=== PATIENT | male | born 1955 | race Hispanic/Latino ===

== ENCOUNTER 2020-05-22 13:53 | Inpatient (IN) | payer OTHER, SELFPAY ==
[2020-05-22] MEDS ORDERED: Ondansetron PF 4 MG/2 ML Vial ONE (14:01)
[2020-05-22] MEDS ORDERED: Haloperidol Lactate 5 MG/ML VIAL ONE (14:23)
[2020-05-22] MEDS ORDERED: Lorazepam 2 MG/ML VIAL ONE (14:39)
[2020-05-22] MEDS ORDERED: Cefepime 2 GM VIAL ONE (15:13)
[2020-05-22 15:19] LABS: Bacteria/HPF None Seen HPF (None Seen); Bilirubin Negative (Negative); Blood, Urine Negative (Negative); Clarity Clear (Clear); Glucose, Urine (Dipstick) Normal (Negative); Ketone, Urine 10 mg/dL (Negative); Leukocyte Negative Leu/uL (Negative); Nitrite Negative (Negative); Protein, Urine (Dipstick) 50 mg/dL (Neg-Trace); RBC/HPF 0-3 HPF (0-3); Specific Gravity, Urine 1.015 (1.002-1.036); Squamous Epithelial 0-3 HPF (0-3); Urobilinogen Normal mg/dL (Less than 2)
[2020-05-22 15:20] LABS: Hemoglobin 14.8 g/dL (14.0-18.0); Mean Corpuscular HGB CONC 33.9 g/dL (32.0-36.0); Mean Corpuscular Hemoglobin 33.1 pg (27.0-31.0); Mean Corpuscular Volume 97.8 fL (78.0-98.0); Mean Platelet Volume 7.8 fL (7.4-10.4); Platelet Count 343 thou/uL (130-400); RBC Distribution Width 15.1 % (11.5-14.5); Red Blood Cell (RBC) Count 4.47 mill/uL (4.70-6.10); White Blood Cell (WBC) Count 22.1 thou/uL (4.8-10.8)
[2020-05-22 15:22] LABS: Sperm/HPF Rare HPF (None Seen)
[2020-05-22 15:28] LABS: Amphetamine Not Detected (NotDetected); Barbiturates Screen Not Detected (NotDetected); Benzodiazepine Screen Not Detected (NotDetected); Cocaine Metabolite Screen Not Detected (NotDetected); Medtox Reader # READER 4; Methadone Not Detected (NotDetected); Methamphetamine Not Detected (NotDetected); Opiate Screen Not Detected (NotDetected); Oxycodone Screen Not Detected (NotDetected); Phencyclidine (PCP) Not Detected (NotDetected); THC/Cannabinoid Screen Detected (NotDetected); Tricyclic Screen Not Detected (NotDetected)
[2020-05-22 15:29] LABS: Acetaminophen Less than 6.0 mcg/mL (10.0-30.0); Alcohol Less than 10 mg/dL (Less than 10); CK (CPK) 205 U/L (30-200); Medtox Control Line Valid? VALID (VALID); Salicylate Less than 8.0 mg/dL (15.0-30.0)
[2020-05-22 15:37] LABS: ALT (SGPT) 13 U/L (8-55); AST (SGOT) 19 U/L (5-34); Albumin 4.5 g/dL (3.4-4.8); Alkaline Phosphatase 113 U/L (40-110); Anion Gap 23 mmol/L (10-20); BUN (Urea Nitrogen) 10 mg/dL (8.4-25.7); Bilirubin, Total 0.2 mg/dL (0.2-1.2); Calc. Creatinine Clearance 0 mL/min (70-130); Calcium 9.2 mg/dL (7.8-10.44); Carbon Dioxide 16 mmol/L (23-31); Chloride 107 mmol/L (98-107); Estimated GFR-MDRD Greater than 90; Globulin 3.4 g/dL (2.4-3.5); Glucose 121 mg/dL (80-115); Potassium 3.8 mmol/L (3.5-5.1); Protein, Total 7.9 g/dL (5.8-8.1); Sodium 142 mmol/L (136-145)
[2020-05-22 15:40] LABS: Anisocytosis SLIGHT = 6-15 cells (100X) (0-5/hpf); Band 35 % (5-11); Lymphocytes 3 % (21-51); MDiff Complete? YES; Monocytes 5 % (0-10); Neutrophil 56 % (42-75); Platelet Morphology Comment Appears Adequate; Polychromasia SLIGHT = 2-3 cells (100X) (0-2/hpf); Reactive Lymphocytes 1 % (0-10); Target Cells SLIGHT = 2-5 cells (100X) (0-1/hpf); Tear Drops SLIGHT = 2-5 cells (100X) (0-1/hpf)
[2020-05-22] MEDS ORDERED: Iopamidol-370 76% 500 ML 1 ML ONE (15:51)
[2020-05-22] MEDS ORDERED: Succinylcholine Chloride 20 MG/ML 10 ml SYRINGE FS ONE (15:56)
[2020-05-22] MEDS ORDERED: Ketamine 50 MG/ML (10ML VIAL) ONE (15:56)
--- NOTE | 2020-05-22 16:12 | RAD ---
PORTABLE CHEST: 05/22/20 HISTORY: Syncope. Altered mental status. COMPARISON: 11/25/19 exam. Heart size within normal limits. The aorta is mildly tortuous. Some minimal interstitial changes in t he bases could represent atelectasis. No confluent infiltrate. IMPRESSION: Minimally increased interstitial changes in the bases suggesting some subsegmental atelectasis. POS: OFF
[2020-05-22] MEDS ORDERED: Fentanyl 100 MCG/2 ML VIAL ONE (16:29)
[2020-05-22] MEDS ORDERED: Vancomycin HCl 1.25 GM in Sodium Chloride 0.9% 250 ML 250 ML IVPB SCH (16:30)
[2020-05-22] MEDS ORDERED: fentaNYL Citrate/PF 2,000 MCG in Sodium Chloride 0.9% 60 ML IV SCH ×2 (16:30→21:00)
[2020-05-22] MEDS ORDERED: Propofol 1,000 MG/100 ML VIAL IV ONE (16:31)
[2020-05-22 16:32] LABS: Actual Bicarbonate (HCO3a) 17.3 mEq/L (22-28); Analyzer IN Cardio ER; Base Excess (BEa) -7.6 mEq/L (-2.0 to +3.0); CO2 Tension 33.8 mmHg (35.0-45.0); Calcium, Ionized (arterial) 1.16 mmol/L (1.12-1.30); Carboxyhemoglobin (COHb) 0.3 gm% (0.0-3.0); Hemoglobin (Hb) 14.1 g/dL (14.0-18.0); O2 Tension (PaO2), arterial 132.7 mmHg (> 80.0); pH, Arterial 7.33 (7.35-7.45)
[2020-05-22 16:33] LABS: Puncture Site LR
--- NOTE | 2020-05-22 18:13 | CT ---
CT OF FACIAL BONES PERFORMED WITHOUT CONTRAST ENHANCEMENT: 05/22/20 HISTORY: Facial trauma. Patient was found on ground. The zygomatic arches are intact. Some deformity to the nasal bone but this is of fairly similar appea ginny as seen on the previous examination. Zygomatic arches are intact. Pterygoid processes are intac t. No air fluid levels. No orbital or maxillary fractures seen. Ethmoid air cell mucosal change is noted . Endotracheal and NG tubes are present. No mandibular fracture. IMPRESSION: No CT evidence of fracture of the facial bones. POS: OFF
--- NOTE | 2020-05-22 18:16 | CT ---
CT OF CERVICAL SPINE PERFORMED WITHOUT CONTRAST ENHANCEMENT: 05/22/20 HISTORY: Fall with neck pain. Vertebral bodies are normal in height. There is a minimal anterolisthesis of C4 on C5. Marked disc na rrowing at C5-6 and C6-7. Facets show degenerative changes but are in normal alignment. There is mild right sided foraminal narrowing at the C5-6 level and left sided foraminal narrowing at C6-7. Eviden ce of what appears to be some vacuum disc material seen at the level of the left vertebral foramen at C5. This is seen on the previous CT examination. Lung apices appear clear. IMPRESSION: No CT evidence of fracture of the cervical spine. POS: OFF
[2020-05-22] MEDS ORDERED: Ondansetron HCl/PF 8 MG in Sodium Chloride 0.9% 50 ML IVPB SCH (18:30)
[2020-05-22 18:32] LABS: Lactic Acid 1.6 mmol/L (0.5-2.2)
--- NOTE | 2020-05-22 18:40 | CT ---
CT OF BRAIN PERFORMED WITHOUT CONTRAST ENHANCEMENT: 05/22/20 HISTORY: Altered mental status. Patient found on the ground, responsive to verbal stimuli but will not talk. COMPARISON: An MRI study and CT examinations of 11/25/19 and 11/27/19 respectively. The ventricular and cisternal system is within normal limits. There is area of decreased attenuation over the left frontal lobe adjacent to the left frontal horn. This area was present on the prior exam ination. Slightly more prominent but still most likely felt to represent some encephalomalacia change . There is considerable white matter changes involving the right temporal and occipital lobes extendi ng minimally into the parietal region. This is an area where the patient had a previous abscess drain ed. A large portion of this is probably just related to encephalomalacia change. I do not appreciate any definite signs to suggest a recurrent abscess on this examination. There is a definite decrease in the shift of midline structures to the left with only approximately 5 mm shift seen on this exam. No hemorrhage noted. Postop craniotomy changes in the right parieto-occipital regions are noted. The right temporal horn is more dilated than on the prior examination probably as the result of the d ecreasing edema. IMPRESSION: 1. Prominent decreased attenuation within the white matter of the right temporal and parieto-occ ipital regions. This is in an area of a previous abscess. I would suspect that the majority of this r epresents encephalomalacia change at this time but some of this could still represent some vasogenic edema given that there is still a slight shift of midline structures to the left. I do not appreciat e any definite abscess. An MRI examination would be helpful in evaluating the vasogenic edema and any small new abscess collection. Alternatively, contrast CT of the brain may help in excluding the poss ibility of an abscess. 2. The area of decreased attenuation in the left frontal lobe adjacent to the left frontal horn is slightly more prominent than the prior exam but still felt most likely to be on the basis of encep halomalacia change. POS: OFF
--- NOTE | 2020-05-22 18:46 | CT ---
CT CHEST, ABDOMEN AND PELVIS PERFORMED WITH INTRAVENOUS CONTRAST ENHANCEMENT: 05/22/20 HISTORY: Patient found down on ground. Responsive only to verbal stimuli and will not talk. The lungs show some bibasilar changes which are slightly more confluent and more suggestive of some d eveloping bibasilar infiltrates. There is no pneumothorax. No pleural effusions. No rib fractures identified. Thoracic aorta is normal in caliber. NG tube is seen within the stomach. Endotracheal tube is just a burke the level of the herb. CT OF ABDOMEN PERFORMED WITH CONTRAST ENHANCEMENT: Visualized liver parenchyma shows some fatty change. Spleen and pancreas regions appear unremarkable. Gallstones are present. Right and left adrenal glands and right and left kidneys are normal. No free fluid in the abdomen. No signs for bowel wall injury. CT OF PELVIS PERFORMED WITH CONTRAST ENHANCEMENT: Gtz catheter is in place. No adenopathy, mass or free fluid. No evidence of fracture of the bony pe lvic ring. No hip fracture identified. CT OF THORACIC SPINE: Unremarkable other than arthritic change. CT OF LUMBAR SPINE: No acute changes. IMPRESSION: 1. Bibasilar lung changes more suggestive of an infiltrate than atelectasis. 2. Mild fatty change to the liver. 3. Gallstones. POS: OFF
--- NOTE | 2020-05-22 19:01 | PDOC.HHP ---
Hospitalist HPI - History of Present Illness Altered mental status History of Present Illness: This is a 65-year-old male patient with a history of brain abscess status post evacuation, who was brought in today by EMS on account of altered mental status. Eventually required endotracheal intubation on arrival of the ED. Patient was altered at the time of presentation thought history limited. Was taken from charts and physician signed off. Of note, he was found on the ground conscious and breathing by his friend at his friend's house. It is unclear whether he is homeless or not. At initial evaluation his pulses were between 70 and 80s, did drop to the 50s requiring atropine. Mentation was altered with GCS reducing to about 11. Blood pressure was systolic 174/102, temperature 94.8, saturation 95% on room air. Initial labs showed lactic acid of 9.2, WBC 22.1, bands 35, anion gap 23 bicarb 16, ABG showed pH 7.33, PCO2 33.8, oxygen saturation 132, alkaline phosphatase elevated at 113,. Drug screen was notable for THC, acetaminophen level is less than 6.0, salicylate less than 8, CPK 205. Urinalysis showed no indication of urinary tract infection. Chest x-ray was done which showed minimally increased interstitial changes in the base suggesting of some subsegmental atelectasis, CT brain showed prominent decreased attenuation with white matter of the right temporal and. To the occipital regions in an area of previous abscess. There was vasogenic edema but not clear indication of abscess. MRI follow-up was recommended. Due to concerns of severe sepsis he was started on IV fluids2 L, received 2 g cefepime and vancomycin. He also received levetiracetam and fentanyl lorazepam and Haldol. Neurosurgery was consulted on account of intracranial lesion. Hospitalist team was consulted for admission. Hospitalist ROS - Review of Systems ROS unobtainable: due to mental status - Medication Medications: No information available Hospitalist History - Past Medical History Other Medical History: Unable to assess. - Past Surgical History Other Surgical History: Craniotomy, brain abscess - Family History Other Family History: Unable to assess - Social History Other Social History: Unable to assess - Exam General Appearance: ill appearing General - other findings: Intubated. Heart: RRR, no murmur, no gallops Respiratory: no wheezes, no rales, no ronchi Extremities: no cyanosis, no clubbing, no edema Psychiatric - other findings: Unable to assess Hospitalist Results - Labs Result Diagrams: 05/22/20 14:50 05/22/20 14:50 Lab results: WBC 22.1 thou/uL (4.8-10.8) H 05/22/20 14:50 Hgb 14.8 g/dL (14.0-18.0) 05/22/20 14:50 Hct 43.7 % (42.0-52.0) 05/22/20 14:50 MCV 97.8 fL (78.0-98.0) 05/22/20 14:50 Plt Count 343 thou/uL (130-400) 05/22/20 14:50 Band Neuts % (Manual) 35 % (5-11) H 05/22/20 14:50 ABG pH 7.33 (7.35-7.45) L 05/22/20 16:27 ABG pCO2 33.8 mmHg (35.0-45.0) L 05/22/20 16:27 ABG pO2 132.7 mmHg (> 80.0) H 05/22/20 16:27 Sodium 142 mmol/L (136-145) 05/22/20 14:50 Potassium 3.8 mmol/L (3.5-5.1) 05/22/20 14:50 Chloride 107 mmol/L (98-107) 05/22/20 14:50 Carbon Dioxide 16 mmol/L (23-31) L 05/22/20 14:50 BUN 10 mg/dL (8.4-25.7) 05/22/20 14:50 Creatinine 0.77 mg/dL (0.7-1.3) 05/22/20 14:50 Glucose 121 mg/dL (80-115) H 05/22/20 14:50 Lactic Acid 1.6 mmol/L (0.5-2.2) 05/22/20 18:03 Calcium 9.2 mg/dL (7.8-10.44) 05/22/20 14:50 Total Bilirubin 0.2 mg/dL (0.2-1.2) 05/22/20 14:50 AST 19 U/L (5-34) 05/22/20 14:50 ALT 13 U/L (8-55) 05/22/20 14:50 Alkaline Phosphatase 113 U/L (40-110) H 05/22/20 14:50 Ammonia 35 umol/L (18-72) 05/22/20 16:04 Creatine Kinase 205 U/L (30-200) H 05/22/20 14:50 Troponin I 0.010 ng/mL (< 0.028) 05/22/20 14:50 Serum Total Protein 7.9 g/dL (5.8-8.1) 05/22/20 14:50 Albumin 4.5 g/dL (3.4-4.8) 05/22/20 14:50 Urine Ketones 10 mg/dL (Negative) A 05/22/20 14:50 Urine Blood Negative (Negative) 05/22/20 14:50 Urine Nitrite Negative (Negative) 05/22/20 14:50 Ur Leukocyte Esterase Negative Noel/uL (Negative) 05/22/20 14:50 Urine RBC 0-3 HPF (0-3) 05/22/20 14:50 Urine WBC 4-6 HPF (0-3) A 05/22/20 14:50 Ur Squamous Epith Cells 0-3 HPF (0-3) 05/22/20 14:50 Urine Bacteria None Seen HPF (None Seen) 05/22/20 14:50 Hospitalist H&P A/P - Plan Plan: This is a 65-year-old male patient who was brought in with altered mental status of unclear etiology with poor ability to get his history. Concerns for intracranial process. He will be admitted for severe sepsis and neurosurgery/neurology evaluation. He will be admitted to CCU Severe sepsis Presents with altered mental status with lactate at 9.2, WBC 22.1 and hypothermia. Unclear etiology possibly intracerebral sourcepossible abscess recurrence Chest x-ray, urinalysis all negative for source of infection. Received 30 mils per KG IV fluids in ED. Started on vancomycin, cefepimewe will continue vancomycin, ceftriaxone and metronidazole for now Blood culture pending Trend lactate Intracerebral infection Possibly abscess Neurosurgery consultedappreciate input. Acute encephalopathy Likely due to sepsis and intracerebral lesion Cannot rule out seizures from intracerebral mass Continue seizure management Prophylactic Keppra Neurology consultedEEG in a.m. Acute respiratory failure Altered mental statusintubated for airway protection Continue monitoring ICU Consult pulmonology. CODE STATUSfull code VT prophylaxisregular
[2020-05-22 19:35] LABS: INR-International Normal Ratio 1.1; PTT 32.5 sec (22.9-36.1); Prothrombin Time 14.9 sec (12.0-14.7)
[2020-05-22] MEDS: cefTRIAXone\\ROCEPHIN 2 GM in Sodium Chloride 0.9% 100 ML IVPB SCH (20:39)
[2020-05-22] MEDS: Enoxaparin Sodium 40 MG/0.4 ML SYRINGE SC SCH (20:39)
[2020-05-22] MEDS: metroNIDAZOLE 500 MG in Premix Bag 1 BAG IVPB SCH (20:39)
[2020-05-22] MEDS: Sodium Chloride 0.9% 1,000 ML IV SCH (20:39)
[2020-05-22] MEDS ORDERED: Electrolyte Replacement Protoc 1 EACH EACH FS PRN (20:41)
[2020-05-22] MEDS ORDERED: Ventilator Sedation Protocol 1 EACH FS SCH (20:45)
[2020-05-22 20:52] VITALS: BMI 20.7
[2020-05-22] MEDS ORDERED: Lorazepam 2 MG/ML VIAL SLOW IVP PRN (21:00)
[2020-05-22] MEDS ORDERED: Propofol BOLUS 1,000 MG/100 ML VIAL IV PRN (21:00)
[2020-05-22] MEDS ORDERED: Fentanyl BOLUS 250 ML IVPB PRN (21:00)
[2020-05-22] MEDS ORDERED: Morphine 2 MG/ML VIAL SLOW IVP PRN (21:00)
[2020-05-22] MEDS: Famotidine/PF 20 mg/2ml Vial SLOW IVP SCH (21:35)
[2020-05-22] MEDS: Propofol 1,000 MG/100 ML VIAL IV PRN (21:40)
--- NOTE | 2020-05-22 22:29 | CON ---
DATE OF CONSULTATION: 05/22/2020 HISTORY OF PRESENT ILLNESS: Mr. Saldana is a 65-year-old gentleman with a prior history of a right occipital abscess resection on 11/26/[address] Velasquez. It was reported to EMS that the patient was found at a stranger or possibly a friend's house and fell out of bed. EMS was called due to altered mental status and the patient was unable to respond to commands. In the Emergency Department, the GCS was 11 and his pulse dropped in the 50s requiring atropine. Blood pressures was 180/100 with a temperature of 94.8. The patient was intubated due to agitation. He received Keppra, fentanyl, and lorazepam as well as Haldol in the emergency room. Due to concerns of sepsis, the patient received cefepime and vancomycin. Neurosurgery was consulted due to question of returning abscess. Head CT was obtained indicating a decreased white matter of the right temporal lobe, vasogenic edema with a slight midline shift. It was reported the patient was moving all extremities prior to intubation. Unable to get a thorough neural examination due to the sedation. REVIEW OF SYSTEMS: Unable to obtain ROS, the patient is intubated. MEDICAL HISTORY: Unobtainable. SOCIAL HISTORY: Unobtainable. ALLERGIES: NO KNOWN DRUG ALLERGIES, UNCONFIRMED. CURRENT MEDICATIONS: Unknown. SOCIAL HISTORY: Unable to obtain. HISTORY OF PRESENT ILLNESS: VITAL SIGNS: BP 180/100, pulse 85, respirations 18, temperature 94.8, and O2 saturation 100%. CONSTITUTION: Ill-appearing. HEENT: Atraumatic and normocephalic. Pupils are equal. NECK: Soft and supple. No masses are noted. Range of motion is intact. NEUROLOGIC: Unable to assess. The patient is intubated and highly sedated. LABORATORY DATA: WBC 22 and platelets 343. Sodium 142. PT 14.9, INR 1.1, and PTT 32.5. IMAGING: Cervical spine CT, no evidence of cervical spine fractures. Head CT, postop craniotomy changes in the right parietal occipital region. Vasogenic edema with a 5 mm midline shift. ASSESSMENT: 1. Altered mental status. 2. Sepsis. 3. Seizure. 4. Brain Abscess PLAN: Prophylactic Keppra for seizures. Continue current antibiotics. Blood cultures are pending. Supportive care. We will get a MRI of the brain to determine if intracranial surgery would help his neurological outcome. Job ID: [id number] [email or web address]
[2020-05-22 22:58] LABS: Actual Bicarbonate (HCO3a) 19.5 mEq/L (22-28); Base Excess (BEa) -2.6 mEq/L (-2.0 to +3.0); CO2 Tension 26.4 mmHg (35.0-45.0); Calcium, Ionized (arterial) 1.16 mmol/L (1.12-1.30); Carboxyhemoglobin (COHb) 0.3 gm% (0.0-3.0); Hemoglobin (Hb) 12.4 g/dL (14.0-18.0); O2 Tension (PaO2), arterial 147.3 mmHg (> 80.0); Potassium - ABG Lab 3.26 mmol/L (3.70-5.30); pH, Arterial 7.49 (7.35-7.45)
[2020-05-22 22:59] LABS: Puncture Site RRA
[2020-05-23 03:39] LABS: Anion Gap 10 mmol/L (10-20); BUN (Urea Nitrogen) 10 mg/dL (8.4-25.7); Calc. Creatinine Clearance 87 mL/min (70-130); Calcium 8.6 mg/dL (7.8-10.44); Carbon Dioxide 20 mmol/L (23-31); Chloride 112 mmol/L (98-107); Estimated GFR-MDRD Greater than 90; Glucose 90 mg/dL (80-115); Potassium 3.2 mmol/L (3.5-5.1); Sodium 139 mmol/L (136-145)
[2020-05-23] MEDS: metroNIDAZOLE 500 MG in Premix Bag 1 BAG IVPB SCH ×3 (03:43→20:10)
[2020-05-23 03:49] LABS: #Basophils 0.1 thou/uL (0.0-0.2); #Eosinphils 0.1 thou/uL (0.0-0.7); #Lymphocytes 1.7 thou/uL (1.20-3.40); #Monocytes 0.9 thou/uL (0.11-0.59); #Neutrophils 9.1 thou/uL (1.40-6.50); %Basophils 0.6 % (0.0-1.0); %Eosinophils 0.5 % (0.0-10.0); %Lymphocytes 14.2 % (21.0-51.0); %Monocytes 7.9 % (0.0-10.0); %Neutrophils 76.9 % (42.0-75.0); Mean Corpuscular HGB CONC 33.3 g/dL (32.0-36.0); Mean Corpuscular Hemoglobin 32.1 pg (27.0-31.0); Mean Corpuscular Volume 96.3 fL (78.0-98.0); Mean Platelet Volume 8.4 fL (7.4-10.4); Platelet Count 264 thou/uL (130-400); Red Blood Cell (RBC) Count 3.73 mill/uL (4.70-6.10); White Blood Cell (WBC) Count 11.8 thou/uL (4.8-10.8)
[2020-05-23] MEDS ORDERED: Potassium Chloride 40 MEQ in Sodium Chloride 0.9% 250 ML 250 ML IVPB SCH (05:00)
[2020-05-23] MEDS: Vancomycin 1 GM in Premix Bag 1 BAG IVPB SCH ×2 (05:52→17:36)
[2020-05-23 07:26] LABS: Base Excess (BEa) -3.9 mEq/L (-2.0 to +3.0); CO2 Tension 32.5 mmHg (35.0-45.0); Carboxyhemoglobin (COHb) 0.3 gm% (0.0-3.0); Hemoglobin (Hb) 11.9 g/dL (14.0-18.0); O2 Tension (PaO2), arterial 119.4 mmHg (> 80.0); Potassium - ABG Lab 3.85 mmol/L (3.70-5.30); pH, Arterial 7.41 (7.35-7.45)
[2020-05-23 07:27] LABS: Puncture Site RR
[2020-05-23 07:28] LABS: ALV-art Gradient 125.175 mmHg (0-20)
--- NOTE | 2020-05-23 08:21 | CON ---
DATE OF CONSULTATION: 05/23/2020 TIME SPENT: 35 minutes of critical time. CONSULTING PHYSICIAN: Hospitalist Group. REASON FOR CONSULTATION: Acute respiratory failure. HISTORY OF PRESENT ILLNESS: The patient is a 65-year-old male, who was brought to the ER yesterday after being found unconscious at home. He was not arousable in the ER, and had bradycardia and hypothermia. He was subsequently intubated. He received Keppra, fentanyl, and lorazepam. There were some concern for sepsis, and he was started on broad-spectrum IV antibiotics. A CT of the head was performed, which showed a large resected abscess area on the right side of the brain. He was intubated for airway protection. He is currently sedated. PAST MEDICAL HISTORY: He has had some type of brain abscess in the past. PAST SURGICAL HISTORY: Craniotomy. FAMILY MEDICAL HISTORY: Unknown. SOCIAL HISTORY: Unknown. MEDICATIONS: Prior to admission, not known. ALLERGIES: NONE. REVIEW OF SYSTEMS: Cannot be obtained as he is on mechanical ventilation. PHYSICAL EXAMINATION: VITAL SIGNS: Heart rate 52, blood pressure 100/63, O2 sat 100%, respiratory rate 16, and temperature 97.9. He just had his sedation turned off. NEUROLOGIC: He will move his arms and legs spontaneously, but does not withdrawal vigorously to pain. HEENT: Pupils 2 mm, reactive. Oropharynx is intubated. NECK: No JVD. LUNGS: Clear. CARDIOVASCULAR: S1 and S2. Slightly bradycardic. ABDOMEN: Soft and nontender to palpation. EXTREMITIES: No clubbing, cyanosis, or edema. LABORATORY DATA: White blood cell count 11.8 after presenting with white blood cell count 23.1, hematocrit 35.9, and platelet count 264, initially had 35 bands, but bands were not reported on today's CBC. INR is 1.1, PTT 32.5. PH of 7.49, pCO2 of 26, pO2 of 147, SIMV rate 16, tidal volume 525, pressure of 10, FiO2 of 40%. Sodium 139, potassium 3.2, chloride 112, CO2 of 20, BUN 10, creatinine 0.6, glucose 90. Lactate now 1.6. Procalcitonin 0.02. Prolactin level 62. IMAGING DATA: Chest x-ray demonstrates fairly clear lung saunders bilaterally. ASSESSMENT: 1. Constellation of symptoms in his presentation along with elevated prolactin suggest that the patient probably had a seizure. His lactic acidosis corrected far too quickly for this to be sepsis. 2. Acute respiratory failure requiring mechanical ventilation. 3. Previous brain abscess. Recommendation anticonvulsants. 4. Neurology consultation. 5. Would consolidate and even discontinue most of the antibiotics, if Neurology and Internal Medicine are in agreement. 6. Hold sedation and extubate if he wakes up. Job ID: [id number]
[2020-05-23] MEDS: Sodium Chloride 0.9% 1,000 ML IV SCH ×2 (08:49→17:37)
[2020-05-23] MEDS: Famotidine/PF 20 mg/2ml Vial SLOW IVP SCH ×2 (08:49→20:13)
[2020-05-23] MEDS: cefTRIAXone\\ROCEPHIN 2 GM in Sodium Chloride 0.9% 100 ML IVPB SCH ×2 (08:49→20:14)
--- NOTE | 2020-05-23 08:57 | PDOC.HOSPP ---
- Subjective Encounter Date: 05/23/20 Encounter Time: 08:55 Subjective: Mr. Saldana was seen today in follow-up of metabolic encephalopathy. He is intubated to protect his airway. He will respond. - Objective Vital Signs & Weight: Vital Signs (12 hours) Temp Pulse Resp BP 05/23/20 08:00 98.2 F 05/23/20 07:17 54 L 100/63 05/23/20 06:00 12 05/23/20 04:00 12 05/23/20 02:02 51 L 120/72 05/23/20 02:00 12 05/23/20 00:00 12 05/22/20 22:34 55 L 140/85 05/22/20 22:00 16 Weight Weight 120 lb 13.013 oz Most Recent Monitor Data Heart Rate from ECG 54 NIBP 137/72 NIBP BP-Mean 93 Respiration from ECG 16 SpO2 100 I&O: 05/22/20 05/23/20 05/24/20 06:59 06:59 06:59 Intake Total 1250 Output Total 1795 80 Balance -545 -80 Result Diagrams: 05/23/20 03:02 05/23/20 03:02 Additional Labs: Accuchecks 05/22/20 14:15 POC Glucose 143 H Hospitalist ROS - Medication Medications: Active Medications Generic Name Dose Route Start Last Admin Trade Name Freq PRN Reason Stop Dose Admin Enoxaparin Sodium 40 mg 05/22/20 21:00 05/22/20 20:39 Enoxaparin Sodium 40 Mg/0.4 Ml Syringe SC 40 mg 2100 ACE Administration Famotidine 20 mg 05/22/20 21:00 05/23/20 08:49 Famotidine/Pf 20 Mg/2ml Vial SLOW IVP 20 mg BID ACE Administration Vancomycin HCl 1 gm/ Device 200 mls @ 200 mls/hr 05/23/20 06:00 05/23/20 05:52 IVPB 200 mls 0600,1800 ACE Administration Metronidazole 500 mg/ Device 100 mls @ 200 mls/hr 05/22/20 20:00 05/23/20 03:43 IVPB 100 mls 0400,1200,2000 ACE Administration Ceftriaxone Sodium 2 gm/ 100 mls @ 200 mls/hr 05/22/20 21:00 05/23/20 08:49 Sodium Chloride IVPB 100 mls Q12HR ACE Administration Sodium Chloride 1,000 mls @ 100 mls/hr 05/22/20 19:45 05/23/20 08:49 Normal Saline 0.9% IV 1,000 mls .Q10H ACE Administration Propofol 1,000 mg 05/22/20 21:00 05/22/20 21:40 Propofol 1,000 Mg/100 Ml Vial IV 06/21/20 21:00 1,000 mg INF PRN Administration TO ACHIEVE GOAL RASS Protocol - Exam Eye: PERRL, anicteric sclera Heart: RRR, no murmur, no gallops, no rubs, normal peripheral pulses Respiratory: CTAB (+ coarse breath sounds), no rales, no ronchi Gastrointestinal: soft, non-tender, non-distended, normal bowel sounds, no palpable masses, no hepatomegaly Extremities: no cyanosis, no edema Hosp A/P (1) Metabolic encephalopathy Code(s): G93.41 - METABOLIC ENCEPHALOPATHY Status: Acute (2) Brain abscess Code(s): G06.0 - INTRACRANIAL ABSCESS AND GRANULOMA Status: Acute (3) Hypertension Code(s): I10 - ESSENTIAL (PRIMARY) HYPERTENSION Status: Chronic - Plan * Metabolic encephalopathy- ? etiology-unclear if this represents sepsis, seizure activity ect. However a seizure is the most likely explanation and working diagnosis * Will check a procalcitonin, and consider de-escalting or discontinuing antibiotics * Will continue to monitor cultures * EEG is pending as well as MRI * He has been placed on Keppra and seizure precautions * Agree with Neurology consult * CT chest noted- changes are suspicious for bi-basilar pneumonia * HTN- blood pressure is elevated- will add Hydralazine as needed
[2020-05-23] MEDS ORDERED: hydrALAZINE 20 MG/ML VIAL SLOW IVP PRN (08:59)
[2020-05-23] MEDS ORDERED: FLU VACC QS2020-21(6MOS UP)/PF 60 MCG/0.5 ML SYRINGE IM ONE (09:00)
[2020-05-23] MEDS ORDERED: levETIRAcetam In NaCl (Iso-Os) 1,000 MG in Premix Bag 1 BAG IVPB SCH (09:00)
--- NOTE | 2020-05-23 09:46 | PRG ---
DATE OF SERVICE: 05/23/2020 I personally interviewed and examined the patient, agreed with documentation of Valente Avila PA-C dated 05/22/2020. Briefly, Ra Saldana is a 65-year-old gentleman, previously treated at our hospital in October and November of this year. He has another different medical record number for that admission, it is quite beneficial to combine those medical record numbers, so that we can look back at previous treatments and plans. This is true on the imaging counter server as well as on the [employer] counter server. Ra Saldana is a 65-year-old gentleman who has been reportedly homeless in the past, who was treated for a dental abscess and subsequent brain abscess that was polymicrobial in nature. He was treated with the Rocephin and Flagyl last time and IV antibiotic therapy as an outpatient was recommended and arranged. It is unclear whether he finished his therapy. He was readmitted to the hospital with altered mental status. It is most likely postictal at the time. He was intubated because of his decreased mental status and admitted to the ICU. CT examination of brain on admission showed evidence of prior surgery and some enlargement of the temporal horn of the lateral ventricle on the right side with and without recurrent abscess. Overnight, Mr. Saldana has made some slow recovery and is responding and becoming more and more purposeful. No fevers have been recorded. Blood pressures have been in the 120s to 150s. On examination, he remains intubated, and there is some sedation running. In spite of that, he begins to make some motion to withdraw and perhaps even localize. I reviewed CT examination of brain and compared to CT examination prior to his craniotomy. There is marked improvement between the 2 scans. The mass effect in the posterior inferior temporal lobe and posterior parietal lobe on the right side was markedly reduced. The posterior horn of the lateral ventricle on the right is now visible, whereas it was not before. Midline shift was decreased from 14 mm to 4 mm. The temporal horn of the lateral ventricle may be enlarged now compared to then, but there is no extra movement of the medial portion of the temporal lobes as compared to when he had previously. I recommended for Mr. Saldana to have an MRI scan. I would be beneficial to see how much fluid is possibly recurrent abscess. It may be there is some loculation of the lateral ventricle that has trapped it. If he returns normal neurological function in spite of the scan, I would treat him quite conservatively. He will need antiepileptic medication going forward, however. Job ID: [id number] [email or web address]
[2020-05-23] MEDS ORDERED: Magnevist 469MG/ML 20 ML VIAL ONE (10:19)
[2020-05-23 11:41] LABS: SARS-CoV-2 MS2 Positive; SARS-CoV-2 N Gene Negative; SARS-CoV-2 S Gene Negative; SARS-CoV-2 by NAA Not Detected (NotDetected); SARS-CoV-2 orf1ab Negative
--- NOTE | 2020-05-23 12:26 | MRI ---
MRI Brain W WO Con History: Abscess Comparison: Multiple prior CT and MRI examinations, most recent CT examination May 22, 2020 Findings: Left inferior frontal encephalomalacia is similar. Right temporoparietal resection cavity f rom prior intraparenchymal abscess is collapsed with cystic enlargement of the right temporal horn. Mild edema edema along the resection cavity. No abnormal enhancing intraparenchymal mass. The right t o left midline shift of approximately 4-5 mm may be on the basis of cystic enlargement of the right temporal or combined with vasogenic edema/transependymal fluid. Overall the edema pattern is similar to the comparison exam. Small focus of susceptibility along the intraparenchymal incision site. No definite communication of the right temporal horn with the atria which may be sequela of scar. Dural venous sinuses are patent. [place] is patent. Impression: 1. Cystic dilatation right temporal horn which may have lost its normal communication with the right lateral ventricular atria from scar, trapped temporal horn. The right temporal parietal edema may reflect continued vasogenic edema versus transependymal flow due to obstruction of the temporal horn communication. Right-left midline shift has not improved nor worsened. 2. No acute hemorrhage. 3. No acute infarction. 4. Mild effacement right quadrilateral plate with high risk for early uncal herniation. 5. No new focal intraparenchymal abscess.
--- NOTE | 2020-05-23 12:46 | PDOC.EEG ---
Neurology EEG Report - Report Report: This EEG was performed using 24 channel [employer] video digital EEG machine with 24 disc electrodes. This was an extended 2 hours 4 minutes of EEG recording. Digital analysis of the EEG was done for Tyrese and seizure detection which revealed no abnormalities. Background: The posterior background rhythm was not observed. Photic stimulation: No response seen with photic stimulation. Hyperventilation: Not performed. Sleep: No stage change was observed. EEG diagnosis: Generalized irregular theta activity seen throughout the recording. Absence of posterior background rhythm. Clinical interpretation: This EEG is consistent with moderate generalized nonspecific cerebral dysf unction.
[2020-05-23] MEDS: Propofol 1,000 MG/100 ML VIAL IV PRN (17:36)
--- NOTE | 2020-05-23 19:50 | CON ---
NEUROLOGY CONSULTATION DATE OF CONSULTATION: REASON FOR CONSULTATION: Altered mental status. HISTORY OF PRESENT ILLNESS: Mr. Saldana is a 65-year-old male with medical history significant for brain abscess status post evacuation, brought by the EMS because of altered mental status. The patient was extremely altered at the time of presentation and no family member was available to provide the history. His blood pressure was 174/102 and he was unable to protect his airway, so he was intubated and sedated. CT scan of the brain was done, which showed discrete attenuation and white matter in the right temporal region and occipital region in the area of previous abscess with vasogenic edema. Due to concern of severe sepsis, he was started on intravenous fluids and was given 2 g of cefepime and vancomycin. There was also a concern about seizures, so he was loaded with 2 g of Keppra and admitted for further evaluation. REVIEW OF SYSTEMS: Unobtainable due to the patient's mental status. MEDICATIONS: Unavailable. PAST MEDICAL HISTORY: Not able to assess. PAST SURGICAL HISTORY: Brain abscess. FAMILY HISTORY: Not able to assess. SOCIAL HISTORY: Not able to assess. PHYSICAL EXAMINATION: General Appearance: ill appearing General - other findings: Intubated. Heart: RRR, no murmur, no gallops Respiratory: no wheezes, no rales, no ronchi Extremities: no cyanosis, no clubbing, no edema Neurological: Mental status: The patient is intubated and sedated. Does not follow commands. Does not maintain eye contact. Cranial nerves: Pupils 4 mm, round and reactive to light. Face symmetric. Tongue midline. Corneals positive, gag positive. Motor, muscle tone and bulk are normal. No spontaneous movement of all 4 extremities seen. Sensory, withdraws all 4 extremities to nailbed pressure. Gait, unable to perform secondary to the patient's mental status. Cerebellar, unable to perform secondary to the patient's mental status. Vital Signs & Weight: Vital Signs (12 hours) Temp Pulse Resp BP 05/23/20 08:00 98.2 F 05/23/20 07:17 54 L 100/63 05/23/20 06:00 12 05/23/20 04:00 12 05/23/20 02:02 51 L 120/72 05/23/20 02:00 12 05/23/20 00:00 12 05/22/20 22:34 55 L 140/85 05/22/20 22:00 16 Weight Weight 120 lb 13.013 oz Most Recent Monitor Data Heart Rate from ECG 54 NIBP 137/72 NIBP BP-Mean 93 Respiration from ECG 16 SpO2 100 I&O: 05/22/20 05/23/20 05/24/20 06:59 06:59 06:59 Intake Total 1250 Output Total 1795 80 Balance -545 -80 Additional Labs: Accuchecks 05/22/20 14:15 POC Glucose 143 H Active Medications Generic Name Dose Route Start Last Admin Trade Name Freq PRN Reason Stop Dose Admin Enoxaparin Sodium 40 mg 05/22/20 21:00 05/22/20 20:39 Enoxaparin Sodium 40 Mg/0.4 Ml Syringe SC 40 mg 2100 ACE Administration Famotidine 20 mg 05/22/20 21:00 05/23/20 08:49 Famotidine/Pf 20 Mg/2ml Vial SLOW IVP 20 mg BID ACE Administration Vancomycin HCl 1 gm/ Device 200 mls @ 200 mls/hr 05/23/20 06:00 05/23/20 05:52 IVPB 200 mls 0600,1800 ACE Administration Metronidazole 500 mg/ Device 100 mls @ 200 mls/hr 05/22/20 20:00 05/23/20 03:43 IVPB 100 mls 0400,1200,2000 ACE Administration Ceftriaxone Sodium 2 gm/ 100 mls @ 200 mls/hr 05/22/20 21:00 05/23/20 08:49 Sodium Chloride IVPB 100 mls Q12HR ACE Administration Sodium Chloride 1,000 mls @ 100 mls/hr 05/22/20 19:45 05/23/20 08:49 Normal Saline 0.9% IV 1,000 mls .Q10H ACE Administration Propofol 1,000 mg 05/22/20 21:00 05/22/20 21:40 Propofol 1,000 Mg/100 Ml Vial IV 06/21/20 21:00 1,000 mg INF PRN Administration TO ACHIEVE GOAL RASS Protocol DATA REVIEWED: I reviewed the CT scan and the MRI of the brain. Labs were significant for leukocytosis of 22.1. Lab results: WBC 22.1 thou/uL (4.8-10.8) H 05/22/20 14:50 Hgb 14.8 g/dL (14.0-18.0) 05/22/20 14:50 Hct 43.7 % (42.0-52.0) 05/22/20 14:50 MCV 97.8 fL (78.0-98.0) 05/22/20 14:50 Plt Count 343 thou/uL (130-400) 05/22/20 14:50 Band Neuts % (Manual) 35 % (5-11) H 05/22/20 14:50 ABG pH 7.33 (7.35-7.45) L 05/22/20 16:27 ABG pCO2 33.8 mmHg (35.0-45.0) L 05/22/20 16:27 ABG pO2 132.7 mmHg (> 80.0) H 05/22/20 16:27 Sodium 142 mmol/L (136-145) 05/22/20 14:50 Potassium 3.8 mmol/L (3.5-5.1) 05/22/20 14:50 Chloride 107 mmol/L (98-107) 05/22/20 14:50 Carbon Dioxide 16 mmol/L (23-31) L 05/22/20 14:50 BUN 10 mg/dL (8.4-25.7) 05/22/20 14:50 Creatinine 0.77 mg/dL (0.7-1.3) 05/22/20 14:50 Glucose 121 mg/dL (80-115) H 05/22/20 14:50 Lactic Acid 1.6 mmol/L (0.5-2.2) 05/22/20 18:03 Calcium 9.2 mg/dL (7.8-10.44) 05/22/20 14:50 Total Bilirubin 0.2 mg/dL (0.2-1.2) 05/22/20 14:50 AST 19 U/L (5-34) 05/22/20 14:50 ALT 13 U/L (8-55) 05/22/20 14:50 Alkaline Phosphatase 113 U/L (40-110) H 05/22/20 14:50 Ammonia 35 umol/L (18-72) 05/22/20 16:04 Creatine Kinase 205 U/L (30-200) H 05/22/20 14:50 Troponin I 0.010 ng/mL (< 0.028) 05/22/20 14:50 Serum Total Protein 7.9 g/dL (5.8-8.1) 05/22/20 14:50 Albumin 4.5 g/dL (3.4-4.8) 05/22/20 14:50 Urine Ketones 10 mg/dL (Negative) A 05/22/20 14:50 Urine Blood Negative (Negative) 05/22/20 14:50 Urine Nitrite Negative (Negative) 05/22/20 14:50 Ur Leukocyte Esterase Negative Noel/uL (Negative) 05/22/20 14:50 Urine RBC 0-3 HPF (0-3) 05/22/20 14:50 Urine WBC 4-6 HPF (0-3) A 05/22/20 14:50 Ur Squamous Epith Cells 0-3 HPF (0-3) 05/22/20 14:50 Urine Bacteria None Seen HPF (None Seen) 05/22/20 14:50 ASSESSMENT AND PLAN: (1) Metabolic encephalopathy Code(s): G93.41 - METABOLIC ENCEPHALOPATHY Status: Acute (2) Brain abscess Code(s): G06.0 - INTRACRANIAL ABSCESS AND GRANULOMA Status: Acute (3) Hypertension Code(s): I10 - ESSENTIAL (PRIMARY) HYPERTENSION Status: Chronic Mr. Ra Saldana is a 65-year-old male with history significant for brain abscess status post evacuation, presented with altered mental status. Altered mental status seems to be multifactorial secondary to infectious etiology versus metabolic. However seizure cannot be ruled out. MRI of the brain reviewed, which was consistent with intracerebral abscess. Continue Keppra 1000 mg IV q.12 hours. Ativan 2 mg IV for seizure for greater than 2 minutes. Observe seizure precautions. EEG reviewed and was negative for seizure activity. Continue medical management per primary team, ID, Neurosurgery, and Pulmonology. Consider palliative team consult . Neuro checks every 4 hours. DVT prophylaxis. We will continue to follow. Thank you for the consult. Job ID: [id number] [facility]
[2020-05-23] MEDS: Enoxaparin Sodium 40 MG/0.4 ML SYRINGE SC SCH (20:13)
[2020-05-24] MEDS: Propofol 1,000 MG/100 ML VIAL IV PRN (01:19)
[2020-05-24] MEDS: metroNIDAZOLE 500 MG in Premix Bag 1 BAG IVPB SCH (04:43)
[2020-05-24] MEDS: Sodium Chloride 0.9% 1,000 ML IV SCH (04:43)
[2020-05-24 05:43] LABS: #Basophils 0.1 thou/uL (0.0-0.2); #Eosinphils 0.1 thou/uL (0.0-0.7); #Lymphocytes 2.2 thou/uL (1.20-3.40); #Monocytes 1.6 thou/uL (0.11-0.59); #Neutrophils 8.3 thou/uL (1.40-6.50); %Basophils 0.5 % (0.0-1.0); %Lymphocytes 17.7 % (21.0-51.0); %Monocytes 13.4 % (0.0-10.0); %Neutrophils 67.4 % (42.0-75.0); Hemoglobin 12.3 g/dL (14.0-18.0); Mean Corpuscular HGB CONC 34.1 g/dL (32.0-36.0); Mean Corpuscular Volume 96.8 fL (78.0-98.0); Mean Platelet Volume 8.4 fL (7.4-10.4); Platelet Count 255 thou/uL (130-400); RBC Distribution Width 14.9 % (11.5-14.5); Red Blood Cell (RBC) Count 3.74 mill/uL (4.70-6.10); White Blood Cell (WBC) Count 12.2 thou/uL (4.8-10.8)
[2020-05-24] MEDS ORDERED: Vancomycin HCl 1.25 GM in Sodium Chloride 0.9% 250 ML 250 ML IVPB SCH (06:00)
[2020-05-24 06:03] LABS: Vancomycin, Trough 11.4 ug/mL
[2020-05-24 06:05] LABS: Anion Gap 13 mmol/L (10-20); BUN (Urea Nitrogen) 8 mg/dL (8.4-25.7); Calc. Creatinine Clearance 87 mL/min (70-130); Calcium 8.5 mg/dL (7.8-10.44); Carbon Dioxide 18 mmol/L (23-31); Chloride 109 mmol/L (98-107); Estimated GFR-MDRD Greater than 90; Glucose 70 mg/dL (80-115); Potassium 3.4 mmol/L (3.5-5.1); Sodium 137 mmol/L (136-145)
[2020-05-24] MEDS ORDERED: Potassium Chloride 40 MEQ in Premix Bag 1 BAG IVPB SCH (06:15)
[2020-05-24] MEDS: Vancomycin 1 GM in Premix Bag 1 BAG IVPB SCH (06:19)
[2020-05-24] MEDS: Potassium Chloride 20 MEQ in Premix Bag 1 BAG IVPB SCH ×2 (06:38→09:29)
--- NOTE | 2020-05-24 06:41 | PRG ---
DATE OF SERVICE: 05/24/2020 This is a Neurosurgery progress note. I saw Ra Saldana in the ICU this morning. He had an MRI scan yesterday, which was quite helpful in narrowing down his diagnosis. He was left intubated overnight but the plan is to remove the tube today. Among the electronically recorded vital signs, I do not notice any fevers. Blood pressures have been in the 120s to 150s. Mr. Saldana wakes. He opens his eyes. He is moves all 4 extremities very purposefully. With some time, he begins to follow some commands. I tried both Bur[place]ian and German and eventually did wiggle his toes for me. I reviewed the MRI scan. There does not seem to be any residual abscess. There is some enhancement in the tract of the previous surgical intervention suggesting some scar tissue. The most obvious finding is slight increase in the size of the temporal horn of the lateral ventricle on the right side. There are some loculations within the temporal horn. This is most likely a postinfectious result. Once he is extubated, then we can speak. I will discuss with him merits of observation versus somehow fenestrating the loculations or creating an exit point for the temporal horn into the CSF space around the brain either with a small temporal lobectomy or an endoscope. Job ID: [id number] [facility]
[2020-05-24 07:00] LABS: Actual Bicarbonate (HCO3a) 18.9 mEq/L (22-28); Base Excess (BEa) -5.5 mEq/L (-2.0 to +3.0); CO2 Tension 33.4 mmHg (35.0-45.0); Calcium, Ionized (arterial) 1.19 mmol/L (1.12-1.30); Carboxyhemoglobin (COHb) 0.3 gm% (0.0-3.0); Hemoglobin (Hb) 12.3 g/dL (14.0-18.0); O2 Tension (PaO2), arterial 136.4 mmHg (> 80.0); Potassium - ABG Lab 3.47 mmol/L (3.70-5.30); pH, Arterial 7.37 (7.35-7.45)
[2020-05-24 07:01] LABS: Puncture Site RRA
[2020-05-24] MEDS ORDERED: Dextrose 5 %-0.45 % NaCl 1,000 ML IV SCH (07:30)
--- NOTE | 2020-05-24 07:49 | PRG ---
DATE OF SERVICE: 05/24/2020 35 minutes of critical care time. SUBJECTIVE: The patient remains intubated on mechanical ventilation. He will wake up and move around without difficulty once sedation is lessened. OBJECTIVE: VITAL SIGNS: His temperature is 98.2, pulse 51, blood pressure 95/54, O2 saturation 100%. 24-hour intake 2947, output 2630. HEENT: Unremarkable. NECK: No adenopathy or JVD. Poor dentition is present. LUNGS: Clear. CARDIAC: S1, S2. Regular. ABDOMEN: Soft. EXTREMITIES: No edema. LABORATORY DATA: White blood cell count 12.2, hematocrit 36.3, and platelet count 255. PH of 7.37, of 33, pO2 of 136. Sodium 137, potassium 3.4, chloride 109, CO2 of 18, BUN 8, creatinine 0.6, and glucose 70. ASSESSMENT: 1. Status post seizure episode-I am basing this on the elevated prolactin at the time of admission and clinical history. 2. Acute respiratory failure requiring mechanical ventilation. 3. Previous brain abscess. PLAN: This patient will be extubated and further evaluation for his neurologic condition. His sedation will be stopped. He can probably go out to the stroke floor later this afternoon. Job ID: [id number]
[2020-05-24] MEDS: cefTRIAXone\\ROCEPHIN 2 GM in Sodium Chloride 0.9% 100 ML IVPB SCH (08:56)
[2020-05-24] MEDS: Famotidine/PF 20 mg/2ml Vial SLOW IVP SCH ×2 (08:57→20:51)
--- NOTE | 2020-05-24 10:57 | PDOC.HOSPP ---
- Subjective Encounter Date: 05/24/20 Encounter Time: 10:53 Subjective: Mr. Saldana was seen today in follow-up of altered mental status and history of brain abscess. He is now extubated. He is confused. He does not know the date or his location, but after a while he did mention being in a hospital. He has been reported to be confused, and agitated by the nursing staff. - Objective Vital Signs & Weight: Vital Signs (12 hours) Pulse Resp BP 05/24/20 06:00 12 05/24/20 04:00 12 05/24/20 02:35 51 L 126/64 05/24/20 02:00 12 05/24/20 00:00 12 Weight Weight 120 lb 13.013 oz Most Recent Monitor Data Heart Rate from ECG 92 NIBP 167/88 NIBP BP-Mean 114 Respiration from ECG 14 SpO2 100 I&O: 05/23/20 05/24/20 05/25/20 06:59 06:59 06:59 Intake Total 1250 2947.4 Output Total 1795 2630 Balance -545 317.4 Result Diagrams: 05/24/20 05:30 05/24/20 05:30 Hospitalist ROS - Medication Medications: Active Medications Generic Name Dose Route Start Last Admin Trade Name Freq PRN Reason Stop Dose Admin Enoxaparin Sodium 40 mg 05/22/20 21:00 05/23/20 20:13 Enoxaparin Sodium 40 Mg/0.4 Ml Syringe SC 40 mg 2100 ACE Administration Famotidine 20 mg 05/22/20 21:00 05/24/20 08:57 Famotidine/Pf 20 Mg/2ml Vial SLOW IVP 20 mg BID ACE Administration Levetiracetam 500 mg/ Device 100 mls @ 200 mls/hr 05/23/20 21:00 05/24/20 09:28 IVPB 100 mls BID ACE Administration Potassium Chloride 20 meq/ 100 mls @ 50 mls/hr 05/24/20 07:00 05/24/20 09:29 Device IVPB 05/24/20 10:59 100 mls Q2H ACE Administration Dextrose/Sodium Chloride 1,000 mls @ 75 mls/hr 05/24/20 07:30 05/24/20 07:30 D5 1/2 Ns IV 1,000 mls .[id number] ACE Administration Thiamine HCl 100 mg/ Sodium 51 mls @ 100 mls/hr 05/24/20 09:00 05/24/20 08:47 Chloride IVPB 05/28/20 09:01 51 mls DAILY ACE Administration - Exam Eye: PERRL, anicteric sclera Heart: RRR, no murmur, no gallops, no rubs Respiratory: rales (+ rales at the bases) Gastrointestinal: soft, non-tender, non-distended, normal bowel sounds, no palpable masses, no hepatomegaly, no splenomegaly Extremities: no cyanosis, no edema Musculoskeletal: normal strength (moving all extremities), no muscle wasting Hosp A/P (1) Metabolic encephalopathy Code(s): G93.41 - METABOLIC ENCEPHALOPATHY Status: Acute (2) Brain abscess Code(s): G06.0 - INTRACRANIAL ABSCESS AND GRANULOMA Status: Acute (3) Hypertension Code(s): I10 - ESSENTIAL (PRIMARY) HYPERTENSION Status: Chronic - Plan * Metabolic encephalopathy- ? etiology-unclear - he continues to be confused. Not sure if this is his baseline or not. Will try to locate family * Probable seizure- will continue Keppra * Procalcitonin level was low, , infection is much less likely, and according to Neuro-surgery, the abscess has resolved- will discontinue Antibiotics * He has been extubated * Agitation- will add Ativan, as needed * HTN- blood pressure is elevated- will add a scheduled antihypertensive medication * He can be moved out of the ICU
[2020-05-24] MEDS ORDERED: Amlodipine 5 MG TAB PO SCH ×2 (11:02→12:30)
[2020-05-24] MEDS ORDERED: Lorazepam 1 MG TAB PO PRN (11:03)
[2020-05-24] MEDS ORDERED: Lorazepam 2 MG/ML VIAL SLOW IVP PRN (11:03)
[2020-05-24] MEDS: Dextrose 5 %-0.45 % NaCl 1,000 ML IV SCH ×2 (12:25→20:51)
--- NOTE | 2020-05-24 12:53 | PDOC.NEUPN ---
- Subjective Encounter Date: 05/24/20 Subjective: Mr. Millers and ptosis is successfully extubated and seems better today. The rounds are conducted with the help of physical therapy who help with the Sami. Patient is alert and oriented to person and place but not time and year. He follows commands appropriately. - Objective Vital Signs & Weight: Vital Signs (12 hours) Pulse Resp BP Pulse Ox 05/24/20 08:00 100 05/24/20 06:00 12 05/24/20 04:00 12 05/24/20 02:35 51 L 126/64 05/24/20 02:00 12 Weight Weight 120 lb 13.013 oz Most Recent Monitor Data Heart Rate from ECG 80 NIBP 167/77 NIBP BP-Mean 107 Respiration from ECG 15 SpO2 99 I&O: 05/23/20 05/24/20 05/25/20 06:59 06:59 06:59 Intake Total 1250 2947.4 214.35 Output Total 1795 2630 2325 Balance -545 317.4 -2110.65 Result Diagrams: 05/24/20 05:30 05/24/20 05:30 Radiology Reviewed by me: Yes EKG Reviewed by me: Yes ROS - Review of Systems ROS unobtainable: due to mental status - Medication Medications: Active Medications Generic Name Dose Route Start Last Admin Trade Name Cyrusq PRN Reason Stop Dose Admin Enoxaparin Sodium 40 mg 05/22/20 21:00 05/23/20 20:13 Enoxaparin Sodium 40 Mg/0.4 Ml Syringe SC 40 mg 2100 ACE Administration Famotidine 20 mg 05/22/20 21:00 05/24/20 08:57 Famotidine/Pf 20 Mg/2ml Vial SLOW IVP 20 mg BID ACE Administration Levetiracetam 500 mg/ Device 100 mls @ 200 mls/hr 05/23/20 21:00 05/24/20 09:28 IVPB 100 mls BID ACE Administration Thiamine HCl 100 mg/ Sodium 51 mls @ 100 mls/hr 05/24/20 09:00 05/24/20 08:47 Chloride IVPB 05/28/20 09:01 51 mls DAILY ACE Administration Dextrose/Sodium Chloride 1,000 mls @ 125 mls/hr 05/24/20 12:14 05/24/20 12:25 D5 1/2 Ns IV Not Given .Q8H ACE Lorazepam 1 mg 05/24/20 11:03 05/24/20 11:27 Lorazepam 2 Mg/Ml Vial SLOW IVP 1 mg Q4H PRN Administration Anxiety/Agitation - Exam General Appearance: awake alert Eye: PERRL ENT: normocephalic atraumatic Neck: supple Respiratory: CTAB Cardiovascular: RRR Gastrointestinal: soft Extremities: no cyanosis Skin: normal turgor Neurological: no focal deficits, no new deficit Musculoskeletal: generalized weakness PSYCH: normal affect, normal behavior, oriented to person, oriented to place Results - Labs Result Diagrams: 05/24/20 05:30 05/24/20 05:30 Lab results: WBC 12.2 thou/uL (4.8-10.8) H 05/24/20 05:30 Hgb 12.3 g/dL (14.0-18.0) L 05/24/20 05:30 Hct 36.2 % (42.0-52.0) L 05/24/20 05:30 MCV 96.8 fL (78.0-98.0) 05/24/20 05:30 Plt Count 255 thou/uL (130-400) 05/24/20 05:30 Neutrophils % 67.4 % (42.0-75.0) 05/24/20 05:30 Band Neuts % (Manual) 35 % (5-11) H 05/22/20 14:50 ABG pH 7.37 (7.35-7.45) 05/24/20 06:52 ABG pCO2 33.4 mmHg (35.0-45.0) L 05/24/20 06:52 ABG pO2 136.4 mmHg (> 80.0) H 05/24/20 06:52 Sodium 137 mmol/L (136-145) 05/24/20 05:30 Potassium 3.4 mmol/L (3.5-5.1) L 05/24/20 05:30 Chloride 109 mmol/L (98-107) H 05/24/20 05:30 Carbon Dioxide 18 mmol/L (23-31) L 05/24/20 05:30 BUN 8 mg/dL (8.4-25.7) L 05/24/20 05:30 Creatinine 0.67 mg/dL (0.7-1.3) L 05/24/20 05:30 Glucose 70 mg/dL (80-115) L 05/24/20 05:30 Lactic Acid 1.6 mmol/L (0.5-2.2) 05/22/20 19:20 Calcium 8.5 mg/dL (7.8-10.44) 05/24/20 05:30 Total Bilirubin 0.2 mg/dL (0.2-1.2) 05/22/20 14:50 AST 19 U/L (5-34) 05/22/20 14:50 ALT 13 U/L (8-55) 05/22/20 14:50 Alkaline Phosphatase 113 U/L (40-110) H 05/22/20 14:50 Ammonia 35 umol/L (18-72) 05/22/20 16:04 Creatine Kinase 205 U/L (30-200) H 05/22/20 14:50 Troponin I 0.010 ng/mL (< 0.028) 05/22/20 14:50 Serum Total Protein 7.9 g/dL (5.8-8.1) 05/22/20 14:50 Albumin 4.5 g/dL (3.4-4.8) 05/22/20 14:50 Urine Ketones 10 mg/dL (Negative) A 05/22/20 14:50 Urine Blood Negative (Negative) 05/22/20 14:50 Urine Nitrite Negative (Negative) 05/22/20 14:50 Ur Leukocyte Esterase Negative Nole/uL (Negative) 05/22/20 14:50 Urine RBC 0-3 HPF (0-3) 05/22/20 14:50 Urine WBC 4-6 HPF (0-3) A 05/22/20 14:50 Ur Squamous Epith Cells 0-3 HPF (0-3) 05/22/20 14:50 Urine Bacteria None Seen HPF (None Seen) 05/22/20 14:50 - Radiology Interpretation CT scan - head Status: image reviewed by me, report reviewed by me Additional Comment: Temporal abscess MRI - head Status: image reviewed by me, report reviewed by me PN A/P (1) Brain abscess Code(s): G06.0 - INTRACRANIAL ABSCESS AND GRANULOMA Status: Acute (2) Metabolic encephalopathy Code(s): G93.41 - METABOLIC ENCEPHALOPATHY Status: Acute (3) Hypertension Code(s): I10 - ESSENTIAL (PRIMARY) HYPERTENSION Status: Chronic - Plan Daily Plan: PT/OT, speech therapy, DVT proph w/SCDs 65-year-old male with history significant for temporal abscess s/p evacuation presented with altered mental status and fever with a concern about sepsis. He was intubated on arrival to the emergency room to protect his airway. MRI brain was completed yesterday and he was successfully extubated today. The patient speaks Sami only. He is alert and oriented to person and place but not time when here. There is baseline confusion. MRI of the brain reviewed which show cystic dilatation of the right temporal horn with associated right temporal vasogenic parietal edema. Neurosurgery is on board. Continue neurochecks every 2 hours EEG reviewed which was negative for seizure activity. Continue Keppra 500 mg p.o. twice daily because increased risk of seizures secondary to temporal location of the abscess. Observe seizure precautions. Ativan 2 mg IV for seizure greater than 2 minutes. Continue medical management per primary team and neurosurgery. PT/OT/speech.
[2020-05-24] MEDS ORDERED: Ziprasidone 20 MG VIAL IM PRN (13:27)
[2020-05-24 14:19] LABS: Potassium 3.4 mmol/L (3.5-5.1)
[2020-05-24] MEDS ORDERED: Potassium Chloride 20 MEQ TAB PO SCH (14:30)
[2020-05-24 14:50] LABS: Anion Gap 15 mmol/L (10-20); BUN (Urea Nitrogen) 5 mg/dL (8.4-25.7); Calc. Creatinine Clearance 90 mL/min (70-130); Calcium 9.1 mg/dL (7.8-10.44); Carbon Dioxide 22 mmol/L (23-31); Chloride 107 mmol/L (98-107); Estimated GFR-MDRD Greater than 90; Glucose 109 mg/dL (80-115); Potassium 3.4 mmol/L (3.5-5.1); Sodium 141 mmol/L (136-145)
[2020-05-24] MEDS ORDERED: Sodium Bicarb 50 MEQ/50 ML Abboject 8.4% SYRINGE ONE (16:14)
[2020-05-24 19:17] LABS: Potassium 4.2 mmol/L (3.5-5.1)
[2020-05-24] MEDS: Enoxaparin Sodium 40 MG/0.4 ML SYRINGE SC SCH (20:51)
[2020-05-25] MEDS: Dextrose 5 %-0.45 % NaCl 1,000 ML IV SCH ×3 (04:52→22:02)
[2020-05-25 05:15] LABS: #Eosinphils 0.1 thou/uL (0.0-0.7); #Lymphocytes 1.2 thou/uL (1.20-3.40); #Monocytes 0.7 thou/uL (0.11-0.59); #Neutrophils 5.5 thou/uL (1.40-6.50); %Basophils 0.3 % (0.0-1.0); %Eosinophils 0.9 % (0.0-10.0); %Lymphocytes 15.9 % (21.0-51.0); %Monocytes 8.8 % (0.0-10.0); %Neutrophils 74.1 % (42.0-75.0); Hemoglobin 12.5 g/dL (14.0-18.0); Mean Corpuscular HGB CONC 34.2 g/dL (32.0-36.0); Mean Corpuscular Hemoglobin 32.9 pg (27.0-31.0); Mean Corpuscular Volume 96.1 fL (78.0-98.0); Mean Platelet Volume 7.9 fL (7.4-10.4); Platelet Count 277 thou/uL (130-400); RBC Distribution Width 14.8 % (11.5-14.5); White Blood Cell (WBC) Count 7.5 thou/uL (4.8-10.8)
[2020-05-25 05:33] LABS: Anion Gap 11 mmol/L (10-20); BUN (Urea Nitrogen) 6 mg/dL (8.4-25.7); Calc. Creatinine Clearance 89 mL/min (70-130); Calcium 8.9 mg/dL (7.8-10.44); Carbon Dioxide 24 mmol/L (23-31); Chloride 108 mmol/L (98-107); Estimated GFR-MDRD Greater than 90; Glucose 120 mg/dL (80-115); Sodium 140 mmol/L (136-145)
[2020-05-25] MEDS: Potassium Chloride 20 MEQ TAB PO SCH ×2 (06:46→09:09)
--- NOTE | 2020-05-25 07:07 | PRG ---
DATE OF SERVICE: 05/25/2020 I saw Mr. Saldana on the Stroke Unit this morning. He has moved out of the ICU after extubation. He does not have any complaints for me this morning. Among the electronically-recorded vital signs, I do not see any fevers. Blood pressures have been in the 110s to 150s. With my limited medical Polish, I understand from Mr. Saldana, he has no headache whatsoever. He feels normal. He is moving all extremities well. I was unable to communicate with him about the results of his brain scan. White blood cell count is trending down. The sodium is 140. My preference for most patients in this situation would be close observation of the size of the temporal horn of the lateral ventricle on the right side. Serial imaging would be ordered and we will follow up over time. It is unclear whether Mr. Saldana will follow up in our clinic or not. Dr. Velasquez does not recall him ever following up after his previous operation. Surgical procedures that could be considered to open the temporal horn of the lateral ventricle are endoscopic or a temporal lobectomy. Either seems reasonable. The endoscopic approach requires serial imaging followup as well as septations can regrow and more scar tissues develop the ventricular system after surgery. The temporal lobectomy has the advantage of wide opening to the subarachnoid space on the outside of the brain. Both of these are quite invasive and most patients and physicians would not want to do them unless or absolutely necessary. The problem is followup. If Mr. Saldana agrees to come back to our Neurosurgery Clinic from [id number] to have a followup scan and decide what to do with any changes, then that is to avoid surgery during this hospitalization. Job ID: [id number]
[2020-05-25] MEDS ORDERED: Potassium Chloride 20 MEQ TAB PO SCH (07:30)
[2020-05-25] MEDS: Amlodipine 5 MG TAB PO SCH (09:12)
[2020-05-25] MEDS: Famotidine/PF 20 mg/2ml Vial SLOW IVP SCH ×2 (09:12→20:41)
--- NOTE | 2020-05-25 13:21 | PDOC.NEUPN ---
- Subjective Encounter Date: 05/25/20 Subjective: Patient is awake and alert and oriented to person and place. He seems to be baseline confused and has no idea why he is in the hospital and who brought him to the hospital. Patient speaks Serbian only. - Objective Vital Signs & Weight: Vital Signs (12 hours) Temp Pulse Resp BP Pulse Ox 05/25/20 11:46 98.4 F 68 16 127/61 98 05/25/20 09:12 66 05/25/20 07:52 98.4 F 66 16 135/63 96 05/25/20 04:00 98.3 F 68 14 110/56 L 98 Weight Admit Weight 120 lb Weight 120 lb 13.013 oz Most Recent Monitor Data Heart Rate from ECG 101 NIBP 168/74 NIBP BP-Mean 129 Respiration from ECG 20 SpO2 100 I&O: 05/24/20 05/25/20 05/26/20 06:59 06:59 06:59 Intake Total 2947.4 2405.35 300 Output Total 2630 4825 Balance 317.4 -2419.65 300 Result Diagrams: 05/25/20 04:54 05/25/20 04:54 Radiology Reviewed by me: Yes EKG Reviewed by me: Yes ROS - Review of Systems ROS unobtainable: due to mental status - Medication Medications: Active Medications Generic Name Dose Route Start Last Admin Trade Name Elena PRN Reason Stop Dose Admin Amlodipine Besylate 5 mg 05/25/20 09:00 05/25/20 09:12 Amlodipine 5 Mg Tab PO 5 mg DAILY ACE Administration Enoxaparin Sodium 40 mg 05/22/20 21:00 05/24/20 20:51 Enoxaparin Sodium 40 Mg/0.4 Ml Syringe SC 40 mg 2100 ACE Administration Famotidine 20 mg 05/22/20 21:00 05/25/20 09:12 Famotidine/Pf 20 Mg/2ml Vial SLOW IVP 20 mg BID ACE Administration Levetiracetam 500 mg/ Device 100 mls @ 200 mls/hr 05/23/20 21:00 05/25/20 08:29 IVPB 100 mls BID ACE Administration Thiamine HCl 100 mg/ Sodium 51 mls @ 100 mls/hr 05/24/20 09:00 05/25/20 08:27 Chloride IVPB 05/28/20 09:01 51 mls DAILY ACE Administration Dextrose/Sodium Chloride 1,000 mls @ 125 mls/hr 05/24/20 12:14 05/25/20 12:21 D5 1/2 Ns IV 1,000 mls .Q8H ACE Administration Lorazepam 1 mg 05/24/20 11:03 05/24/20 11:27 Lorazepam 2 Mg/Ml Vial SLOW IVP 1 mg Q4H PRN Administration Anxiety/Agitation Sodium Chloride 10 ml 05/25/20 09:00 05/25/20 08:29 Flush - Normal Saline 10 Ml Syringe IVF 10 ml Q12HR ACE Administration Ziprasidone 10 mg 05/24/20 13:27 05/24/20 14:13 Ziprasidone 20 Mg Vial IM 10 mg Q4H PRN Administration Agitation - Exam General Appearance: awake alert Eye: PERRL ENT: normocephalic atraumatic Neck: supple Respiratory: CTAB Cardiovascular: RRR Gastrointestinal: soft Extremities: no cyanosis Skin: normal turgor Neurological: no focal deficits, no new deficit PSYCH: oriented to person, oriented to place Results - Labs Result Diagrams: 05/25/20 04:54 05/25/20 04:54 Lab results: WBC 7.5 thou/uL (4.8-10.8) 05/25/20 04:54 Hgb 12.5 g/dL (14.0-18.0) L 05/25/20 04:54 Hct 36.5 % (42.0-52.0) L 05/25/20 04:54 MCV 96.1 fL (78.0-98.0) 05/25/20 04:54 Plt Count 277 thou/uL (130-400) 05/25/20 04:54 Neutrophils % 74.1 % (42.0-75.0) 05/25/20 04:54 Band Neuts % (Manual) 35 % (5-11) H 05/22/20 14:50 ABG pH 7.37 (7.35-7.45) 05/24/20 06:52 ABG pCO2 33.4 mmHg (35.0-45.0) L 05/24/20 06:52 ABG pO2 136.4 mmHg (> 80.0) H 05/24/20 06:52 Sodium 140 mmol/L (136-145) 05/25/20 04:54 Potassium 3.0 mmol/L (3.5-5.1) L 05/25/20 04:54 Chloride 108 mmol/L (98-107) H 05/25/20 04:54 Carbon Dioxide 24 mmol/L (23-31) 05/25/20 04:54 BUN 6 mg/dL (8.4-25.7) L 05/25/20 04:54 Creatinine 0.66 mg/dL (0.7-1.3) L 05/25/20 04:54 Glucose 120 mg/dL (80-115) H 05/25/20 04:54 Lactic Acid 1.6 mmol/L (0.5-2.2) 05/22/20 19:20 Calcium 8.9 mg/dL (7.8-10.44) 05/25/20 04:54 Total Bilirubin 0.2 mg/dL (0.2-1.2) 05/22/20 14:50 AST 19 U/L (5-34) 05/22/20 14:50 ALT 13 U/L (8-55) 05/22/20 14:50 Alkaline Phosphatase 113 U/L (40-110) H 05/22/20 14:50 Ammonia 35 umol/L (18-72) 05/22/20 16:04 Creatine Kinase 205 U/L (30-200) H 05/22/20 14:50 Troponin I 0.010 ng/mL (< 0.028) 05/22/20 14:50 Serum Total Protein 7.9 g/dL (5.8-8.1) 05/22/20 14:50 Albumin 4.5 g/dL (3.4-4.8) 05/22/20 14:50 Urine Ketones 10 mg/dL (Negative) A 05/22/20 14:50 Urine Blood Negative (Negative) 05/22/20 14:50 Urine Nitrite Negative (Negative) 05/22/20 14:50 Ur Leukocyte Esterase Negative Onel/uL (Negative) 05/22/20 14:50 Urine RBC 0-3 HPF (0-3) 05/22/20 14:50 Urine WBC 4-6 HPF (0-3) A 05/22/20 14:50 Ur Squamous Epith Cells 0-3 HPF (0-3) 05/22/20 14:50 Urine Bacteria None Seen HPF (None Seen) 05/22/20 14:50 - EKG Interpretation EKG: Normal sinus rhythm - Radiology Interpretation MRI - head Status: image reviewed by me, report reviewed by me Additional Comment: MRI of the brain cystic dilated duration of the right temporal horn PN A/P (1) Brain abscess Code(s): G06.0 - INTRACRANIAL ABSCESS AND GRANULOMA Status: Acute (2) Metabolic encephalopathy Code(s): G93.41 - METABOLIC ENCEPHALOPATHY Status: Acute (3) Hypertension Code(s): I10 - ESSENTIAL (PRIMARY) HYPERTENSION Status: Chronic - Plan Daily Plan: PT/OT, speech therapy, DVT proph w/SCDs 65-year-old male with history significant for temporal abscess s/p evacuation presented with altered mental status and fever with a concern about sepsis. He was intubated on arrival to the emergency room to protect his airway. MRI brain was completed on 05/23 and he was successfully extubated on 05/24. The patient speaks Serbian only. He is alert and oriented to person and place but not time and he is confused at baseline. Consider repeat EEG just prior EEG was completed when he was on sedation to further evaluate cortical irritability. MRI of the brain reviewed which showed cystic dilatation of the right temporal horn with associated right temporal vasogenic parietal edema. Neurosurgery is on board. Continue neurochecks every 2 hours EEG reviewed which was negative for seizure activity. Continue Keppra 500 mg p.o. twice daily because increased risk of seizures secondary to temporal location of the abscess. Observe seizure precautions. Ativan 2 mg IV for seizure greater than 2 minutes. Continue medical management per primary team and neurosurgery. PT/OT/speech. Palliative care consult Case management on board regarding discharge planning Plan discussed during the MDR rounds and also with the primary attending Dr. Gerber.
--- NOTE | 2020-05-25 16:26 | PDOC.HOSPP ---
- Subjective Encounter Date: 05/25/20 Encounter Time: 16:25 Subjective: Mr. Saldana was seen today in follow-up of altered mental status. He does not have any complaints. He denies any headache. - Objective Vital Signs & Weight: Vital Signs (12 hours) Temp Pulse Pulse Pulse Resp BP BP 05/25/20 15:50 98.3 F 68 16 05/25/20 11:46 98.4 F 68 16 05/25/20 09:40 71 78 148/83 H 127/73 05/25/20 09:12 66 05/25/20 07:52 98.4 F 66 16 BP Pulse Ox 05/25/20 15:50 128/71 97 05/25/20 11:46 127/61 98 05/25/20 09:40 05/25/20 09:12 05/25/20 07:52 135/63 96 Weight Admit Weight 120 lb Weight 120 lb 13.013 oz Most Recent Monitor Data Heart Rate from ECG 101 NIBP 168/74 NIBP BP-Mean 129 Respiration from ECG 20 SpO2 100 I&O: 05/24/20 05/25/20 05/26/20 06:59 06:59 06:59 Intake Total 2947.4 2405.35 300 Output Total 2630 4825 Balance 317.4 -2419.65 300 Result Diagrams: 05/25/20 04:54 05/25/20 04:54 Hospitalist ROS - Medication Medications: Active Medications Generic Name Dose Route Start Last Admin Trade Name Freq PRN Reason Stop Dose Admin Amlodipine Besylate 5 mg 05/25/20 09:00 05/25/20 09:12 Amlodipine 5 Mg Tab PO 5 mg DAILY ACE Administration Enoxaparin Sodium 40 mg 05/22/20 21:00 05/24/20 20:51 Enoxaparin Sodium 40 Mg/0.4 Ml Syringe SC 40 mg 2100 ACE Administration Famotidine 20 mg 05/22/20 21:00 05/25/20 09:12 Famotidine/Pf 20 Mg/2ml Vial SLOW IVP 20 mg BID ACE Administration Levetiracetam 500 mg/ Device 100 mls @ 200 mls/hr 05/23/20 21:00 05/25/20 08:29 IVPB 100 mls BID ACE Administration Thiamine HCl 100 mg/ Sodium 51 mls @ 100 mls/hr 05/24/20 09:00 05/25/20 08:27 Chloride IVPB 05/28/20 09:01 51 mls DAILY ACE Administration Dextrose/Sodium Chloride 1,000 mls @ 125 mls/hr 05/24/20 12:14 05/25/20 12:21 D5 1/2 Ns IV 1,000 mls .Q8H ACE Administration Lorazepam 1 mg 05/24/20 11:03 05/24/20 11:27 Lorazepam 2 Mg/Ml Vial SLOW IVP 1 mg Q4H PRN Administration Anxiety/Agitation Sodium Chloride 10 ml 05/25/20 09:00 05/25/20 08:29 Flush - Normal Saline 10 Ml Syringe IVF 10 ml Q12HR ACE Administration Ziprasidone 10 mg 05/24/20 13:27 05/24/20 14:13 Ziprasidone 20 Mg Vial IM 10 mg Q4H PRN Administration Agitation - Exam Eye: PERRL, anicteric sclera Heart: RRR, no murmur, no gallops, no rubs, normal peripheral pulses Respiratory: CTAB, no wheezes, no rales, no ronchi, normal chest expansion, no tachypnea, normal percussion Gastrointestinal: soft, non-tender, non-distended, normal bowel sounds, no palpable masses, no hepatomegaly, no splenomegaly Extremities: no cyanosis, no edema Hosp A/P (1) Metabolic encephalopathy Code(s): G93.41 - METABOLIC ENCEPHALOPATHY Status: Acute (2) Brain abscess Code(s): G06.0 - INTRACRANIAL ABSCESS AND GRANULOMA Status: Acute (3) Hypertension Code(s): I10 - ESSENTIAL (PRIMARY) HYPERTENSION Status: Chronic - Plan * Metabolic encephalopathy- I believe he is at his baseline * Probable seizure- will continue Keppra * Agitation- will add Ativan, as needed * HTN- blood pressure is elevated- will add a scheduled antihypertensive medication * Neurosurgery recommendations noted. A diffenitive surgical procedure to deal with residual effects of the absces would be ideal, and due to his difficulty with follow-up, preferably done during this hospitalization. I spoke with his daughter over the phone. She tells me they are mostly estranged. He used to live with them, but just suddenly left, and would not answer their phone calls. She agrees however to help with decision making going forward and will try to come to the hospital tomorrow.
--- NOTE | 2020-05-25 16:28 | PDOC.NEUPN ---
- Objective Vital Signs & Weight: Vital Signs (12 hours) Temp Pulse Pulse Pulse Resp BP BP 05/25/20 15:50 98.3 F 68 16 05/25/20 11:46 98.4 F 68 16 05/25/20 09:40 71 78 148/83 H 127/73 05/25/20 09:12 66 05/25/20 07:52 98.4 F 66 16 BP Pulse Ox 05/25/20 15:50 128/71 97 05/25/20 11:46 127/61 98 05/25/20 09:40 05/25/20 09:12 05/25/20 07:52 135/63 96 Weight Admit Weight 120 lb Weight 120 lb 13.013 oz Most Recent Monitor Data Heart Rate from ECG 101 NIBP 168/74 NIBP BP-Mean 129 Respiration from ECG 20 SpO2 100 I&O: 05/24/20 05/25/20 05/26/20 06:59 06:59 06:59 Intake Total 2947.4 2405.35 300 Output Total 2630 4825 Balance 317.4 -2419.65 300 Result Diagrams: 05/25/20 04:54 05/25/20 04:54 ROS - Medication Medications: Active Medications Generic Name Dose Route Start Last Admin Trade Name Freq PRN Reason Stop Dose Admin Amlodipine Besylate 5 mg 05/25/20 09:00 05/25/20 09:12 Amlodipine 5 Mg Tab PO 5 mg DAILY ACE Administration Enoxaparin Sodium 40 mg 05/22/20 21:00 05/24/20 20:51 Enoxaparin Sodium 40 Mg/0.4 Ml Syringe SC 40 mg 2100 ACE Administration Famotidine 20 mg 05/22/20 21:00 05/25/20 09:12 Famotidine/Pf 20 Mg/2ml Vial SLOW IVP 20 mg BID ACE Administration Levetiracetam 500 mg/ Device 100 mls @ 200 mls/hr 05/23/20 21:00 05/25/20 08:29 IVPB 100 mls BID ACE Administration Thiamine HCl 100 mg/ Sodium 51 mls @ 100 mls/hr 05/24/20 09:00 05/25/20 08:27 Chloride IVPB 05/28/20 09:01 51 mls DAILY ACE Administration Dextrose/Sodium Chloride 1,000 mls @ 125 mls/hr 05/24/20 12:14 05/25/20 12:21 D5 1/2 Ns IV 1,000 mls .Q8H ACE Administration Lorazepam 1 mg 05/24/20 11:03 05/24/20 11:27 Lorazepam 2 Mg/Ml Vial SLOW IVP 1 mg Q4H PRN Administration Anxiety/Agitation Sodium Chloride 10 ml 05/25/20 09:00 05/25/20 08:29 Flush - Normal Saline 10 Ml Syringe IVF 10 ml Q12HR ACE Administration Ziprasidone 10 mg 05/24/20 13:27 05/24/20 14:13 Ziprasidone 20 Mg Vial IM 10 mg Q4H PRN Administration Agitation Results - Labs Result Diagrams: 05/25/20 04:54 05/25/20 04:54 Lab results: WBC 7.5 thou/uL (4.8-10.8) 05/25/20 04:54 Hgb 12.5 g/dL (14.0-18.0) L 05/25/20 04:54 Hct 36.5 % (42.0-52.0) L 05/25/20 04:54 MCV 96.1 fL (78.0-98.0) 05/25/20 04:54 Plt Count 277 thou/uL (130-400) 05/25/20 04:54 Neutrophils % 74.1 % (42.0-75.0) 05/25/20 04:54 Band Neuts % (Manual) 35 % (5-11) H 05/22/20 14:50 ABG pH 7.37 (7.35-7.45) 05/24/20 06:52 ABG pCO2 33.4 mmHg (35.0-45.0) L 05/24/20 06:52 ABG pO2 136.4 mmHg (> 80.0) H 05/24/20 06:52 Sodium 140 mmol/L (136-145) 05/25/20 04:54 Potassium 3.0 mmol/L (3.5-5.1) L 05/25/20 04:54 Chloride 108 mmol/L (98-107) H 05/25/20 04:54 Carbon Dioxide 24 mmol/L (23-31) 05/25/20 04:54 BUN 6 mg/dL (8.4-25.7) L 05/25/20 04:54 Creatinine 0.66 mg/dL (0.7-1.3) L 05/25/20 04:54 Glucose 120 mg/dL (80-115) H 05/25/20 04:54 Lactic Acid 1.6 mmol/L (0.5-2.2) 05/22/20 19:20 Calcium 8.9 mg/dL (7.8-10.44) 05/25/20 04:54 Total Bilirubin 0.2 mg/dL (0.2-1.2) 05/22/20 14:50 AST 19 U/L (5-34) 05/22/20 14:50 ALT 13 U/L (8-55) 05/22/20 14:50 Alkaline Phosphatase 113 U/L (40-110) H 05/22/20 14:50 Ammonia 35 umol/L (18-72) 05/22/20 16:04 Creatine Kinase 205 U/L (30-200) H 05/22/20 14:50 Troponin I 0.010 ng/mL (< 0.028) 05/22/20 14:50 Serum Total Protein 7.9 g/dL (5.8-8.1) 05/22/20 14:50 Albumin 4.5 g/dL (3.4-4.8) 05/22/20 14:50 Urine Ketones 10 mg/dL (Negative) A 05/22/20 14:50 Urine Blood Negative (Negative) 05/22/20 14:50 Urine Nitrite Negative (Negative) 05/22/20 14:50 Ur Leukocyte Esterase Negative Noel/uL (Negative) 05/22/20 14:50 Urine RBC 0-3 HPF (0-3) 05/22/20 14:50 Urine WBC 4-6 HPF (0-3) A 05/22/20 14:50 Ur Squamous Epith Cells 0-3 HPF (0-3) 05/22/20 14:50 Urine Bacteria None Seen HPF (None Seen) 05/22/20 14:50 PN A/P (1) Brain abscess Code(s): G06.0 - INTRACRANIAL ABSCESS AND GRANULOMA Status: Acute (2) Metabolic encephalopathy Code(s): G93.41 - METABOLIC ENCEPHALOPATHY Status: Acute (3) Hypertension Code(s): I10 - ESSENTIAL (PRIMARY) HYPERTENSION Status: Chronic - Plan 65-year-old male with history significant for temporal abscess s/p evacuation presented with altered mental status and fever with a concern about sepsis. He was intubated on arrival to the emergency room to protect his airway. MRI brain was completed on 05/23 and he was successfully extubated on 05/24. The patient speaks Kyrgy[place] only. He is alert and oriented to person and place but not time and he is confused at baseline. Consider repeat EEG just prior EEG was completed when he was on sedation to further evaluate cortical irritability. MRI of the brain reviewed which showed cystic dilatation of the right temporal horn with associated right temporal vasogenic parietal edema. Neurosurgery is on board. Continue neurochecks every 2 hours EEG reviewed which was negative for seizure activity. Continue Keppra 500 mg p.o. twice daily because increased risk of seizures secondary to temporal location of the abscess. Observe seizure precautions. Ativan 2 mg IV for seizure greater than 2 minutes. Continue medical management per primary team and neurosurgery. PT/OT/speech. Palliative care consult Case management on board regarding discharge planning Plan discussed during the MDR rounds and also with the primary attending Dr. Gerber.
--- NOTE | 2020-05-25 16:30 | PDOC.EEG ---
Neurology EEG Report - Report Report: This EEG was performed using 24 channel [employer] video digital EEG machine with 24 disc electrodes. This was an extended 2 hours 10 minutes of EEG recording. Digital analysis of the EEG was done for Tyrese and seizure detection which revealed no abnormalities. Background: The posterior background rhythm is 9-10 Hz. Minimal reactivity with eye opening and closure.. Photic stimulation: No response seen with photic stimulation. Hyperventilation: Not performed. Sleep: No stage change was observed. EEG diagnosis: Occasional irregular theta activity seen throughout the recording. Clinical interpretation: This EEG is consistent with mild generalized nonspecific cerebral dysfunction. There is interval improvement since prior study.
[2020-05-25] MEDS: Enoxaparin Sodium 40 MG/0.4 ML SYRINGE SC SCH (20:41)
[2020-05-26 05:33] LABS: Anion Gap 10 mmol/L (10-20); BUN (Urea Nitrogen) 4 mg/dL (8.4-25.7); Calc. Creatinine Clearance 86 mL/min (70-130); Carbon Dioxide 27 mmol/L (23-31); Chloride 106 mmol/L (98-107); Estimated GFR-MDRD Greater than 90; Glucose 113 mg/dL (80-115); Potassium 3.5 mmol/L (3.5-5.1); Sodium 139 mmol/L (136-145)
[2020-05-26] MEDS ORDERED: Potassium Chloride 20 MEQ TAB PO SCH (05:45)
[2020-05-26] MEDS: Dextrose 5 %-0.45 % NaCl 1,000 ML IV SCH ×2 (06:24→15:59)
--- NOTE | 2020-05-26 07:44 | PDOC.HOSPP ---
- Subjective Encounter Date: 05/26/20 Encounter Time: 08:00 Subjective: Mr. Saldana is a 65 y/o male being followed for altered mental status. Patient was seen and examined this morning. Patient stated he was doing well and had no pain. He stated he only slept 4 hours and wanted more sleep before eating. - Objective Vital Signs & Weight: Vital Signs (12 hours) Temp Pulse Resp BP Pulse Ox 05/26/20 04:00 98.2 F 64 18 140/80 98 05/26/20 00:00 98.4 F 69 16 136/75 97 05/25/20 20:00 98.5 F 84 18 149/64 H 98 Weight Admit Weight 120 lb Weight 120 lb 13.013 oz Most Recent Monitor Data Heart Rate from ECG 101 NIBP 168/74 NIBP BP-Mean 129 Respiration from ECG 20 SpO2 100 I&O: 05/25/20 05/26/20 05/27/20 06:59 06:59 06:59 Intake Total 2405.35 1906 Output Total 4825 2300 Balance -2419.65 -394 Result Diagrams: 05/25/20 04:54 05/26/20 04:56 Hospitalist ROS - Review of Systems Constitutional: denies: fever, chills Respiratory: reports: pleuritic pain. denies: cough, shortness of breath Cardiovascular: denies: chest pain, palpitations Gastrointestinal: denies: nausea, vomiting, diarrhea - Medication Medications: Active Medications Generic Name Dose Route Start Last Admin Trade Name Freq PRN Reason Stop Dose Admin Amlodipine Besylate 5 mg 05/25/20 09:00 05/25/20 09:12 Amlodipine 5 Mg Tab PO 5 mg DAILY ACE Administration Enoxaparin Sodium 40 mg 05/22/20 21:00 05/25/20 20:41 Enoxaparin Sodium 40 Mg/0.4 Ml Syringe SC 40 mg 2100 ACE Administration Famotidine 20 mg 05/22/20 21:00 05/25/20 20:41 Famotidine/Pf 20 Mg/2ml Vial SLOW IVP 20 mg BID ACE Administration Levetiracetam 500 mg/ Device 100 mls @ 200 mls/hr 05/23/20 21:00 05/25/20 20:41 IVPB 100 mls BID ACE Administration Thiamine HCl 100 mg/ Sodium 51 mls @ 100 mls/hr 05/24/20 09:00 05/25/20 08:27 Chloride IVPB 05/28/20 09:01 51 mls DAILY ACE Administration Dextrose/Sodium Chloride 1,000 mls @ 125 mls/hr 05/24/20 12:14 05/26/20 06:24 D5 1/2 Ns IV 1,000 mls .Q8H ACE Administration Lorazepam 1 mg 05/24/20 11:03 05/24/20 11:27 Lorazepam 2 Mg/Ml Vial SLOW IVP 1 mg Q4H PRN Administration Anxiety/Agitation Potassium Chloride 40 meq 05/26/20 05:45 05/26/20 06:19 Potassium Chloride 20 Meq Tab PO 05/26/20 08:00 40 meq NOW ACE Administration Sodium Chloride 10 ml 05/25/20 09:00 05/25/20 20:45 Flush - Normal Saline 10 Ml Syringe IVF 10 ml Q12HR ACE Administration Ziprasidone 10 mg 05/24/20 13:27 05/24/20 14:13 Ziprasidone 20 Mg Vial IM 10 mg Q4H PRN Administration Agitation - Exam General Appearance: NAD, awake alert Heart: RRR, no murmur, no gallops, no rubs Respiratory: CTAB, no wheezes, no rales, no ronchi Gastrointestinal: soft, non-tender, non-distended, normal bowel sounds Extremities: no edema Musculoskeletal: normal tone, normal strength Psychiatric: normal affect, normal behavior, A&O x 3 Hosp A/P (1) Metabolic encephalopathy Code(s): G93.41 - METABOLIC ENCEPHALOPATHY Status: Acute (2) Brain abscess Code(s): G06.0 - INTRACRANIAL ABSCESS AND GRANULOMA Status: Acute (3) Hypertension Code(s): I10 - ESSENTIAL (PRIMARY) HYPERTENSION Status: Chronic - Plan * Metabolic encephalopathy- patient is at his baseline, has improved to A&O x3 * Probable seizure- will continue Keppra * Agitation- patient has been stable * HTN- scheduled antihypertensive medication * Neurosurgery recommendations noted. * * Patient seen and examined and discussed with Cheryl Campbell MS-3, and agree with abov. Patient is back to his baseline mental status. He is clinically stable. I have located the patient's daughter and she may come to the hospital today, and will discuss the situation. Otherwise, he can be discharged home today, with outpatient follow-up on [facility].
[2020-05-26] MEDS: Amlodipine 5 MG TAB PO SCH (09:19)
[2020-05-26] MEDS: Famotidine/PF 20 mg/2ml Vial SLOW IVP SCH (09:20)
--- NOTE | 2020-05-26 12:48 | PDOC.NEUPN ---
- Subjective Encounter Date: 05/26/20 Subjective: Mr. Saldana feels much better today. He is alert and oriented x4. Rounds were conducted in conjunction with the family practice resident Dr. Askew who interpreted Mongolian. Patient is back to his baseline. - Objective Vital Signs & Weight: Vital Signs (12 hours) Temp Pulse Resp BP Pulse Ox 05/26/20 11:16 98.6 F 68 16 150/72 H 97 05/26/20 09:19 84 05/26/20 07:46 97.9 F 84 17 137/79 97 05/26/20 04:00 98.2 F 64 18 140/80 98 Weight Admit Weight 120 lb Weight 120 lb 13.013 oz Most Recent Monitor Data Heart Rate from ECG 101 NIBP 168/74 NIBP BP-Mean 129 Respiration from ECG 20 SpO2 100 I&O: 05/25/20 05/26/20 05/27/20 06:59 06:59 06:59 Intake Total 2405.35 1906 Output Total 4876 2300 Balance -6469.65 -394 Result Diagrams: 05/25/20 04:54 05/26/20 04:56 Radiology Reviewed by me: Yes EKG Reviewed by me: Yes ROS - Review of Systems Constitutional: denies: fever, chills, sweats, weakness, malaise, other Eyes: denies: pain, vision change, conjunctivae inflammation, eyelid i nflammation, redness, other ENT: denies: ear pain, ear discharge, nose pain, nose discharge, nose congestion, mouth pain, mouth swelling, throat pain, throat swelling, other Respiratory: denies: cough, dry, shortness of breath, hemoptysis, SOB with e xcertion, pleuritic pain, sputum, wheezing, other All Systems: All other systems reviewed; all pertinent +/- noted in HPI/Subj - Medication Medications: Active Medications Generic Name Dose Route Start Last Admin Trade Name Freq PRN Reason Stop Dose Admin Amlodipine Besylate 5 mg 05/25/20 09:00 05/26/20 09:19 Amlodipine 5 Mg Tab PO 5 mg DAILY ACE Administration Enoxaparin Sodium 40 mg 05/22/20 21:00 05/25/20 20:41 Enoxaparin Sodium 40 Mg/0.4 Ml Syringe SC 40 mg 2100 ACE Administration Famotidine 20 mg 05/22/20 21:00 05/26/20 09:20 Famotidine/Pf 20 Mg/2ml Vial SLOW IVP 20 mg BID ACE Administration Thiamine HCl 100 mg/ Sodium 51 mls @ 100 mls/hr 05/24/20 09:00 05/26/20 09:20 Chloride IVPB 05/28/20 09:01 51 mls DAILY ACE Administration Dextrose/Sodium Chloride 1,000 mls @ 125 mls/hr 05/24/20 12:14 05/26/20 06:24 D5 1/2 Ns IV 1,000 mls .Q8H ACE Administration Lorazepam 1 mg 05/24/20 11:03 05/24/20 11:27 Lorazepam 2 Mg/Ml Vial SLOW IVP 1 mg Q4H PRN Administration Anxiety/Agitation Sodium Chloride 10 ml 05/25/20 09:00 05/26/20 09:20 Flush - Normal Saline 10 Ml Syringe IVF 10 ml Q12HR ACE Administration Ziprasidone 10 mg 05/24/20 13:27 05/24/20 14:13 Ziprasidone 20 Mg Vial IM 10 mg Q4H PRN Administration Agitation - Exam General Appearance: awake alert Eye: PERRL ENT: normocephalic atraumatic Neck: supple Respiratory: CTAB Cardiovascular: RRR Gastrointestinal: soft Extremities: no cyanosis Skin: normal turgor Neurological: no focal deficits, no new deficit Musculoskeletal: no muscle wasting PSYCH: normal affect, normal behavior, A&O x 3, oriented to person, oriented to place, oriented to time Results - Labs Result Diagrams: 05/25/20 04:54 05/26/20 04:56 Lab results: WBC 7.5 thou/uL (4.8-10.8) 05/25/20 04:54 Hgb 12.5 g/dL (14.0-18.0) L 05/25/20 04:54 Hct 36.5 % (42.0-52.0) L 05/25/20 04:54 MCV 96.1 fL (78.0-98.0) 05/25/20 04:54 Plt Count 277 thou/uL (130-400) 05/25/20 04:54 Neutrophils % 74.1 % (42.0-75.0) 05/25/20 04:54 Band Neuts % (Manual) 35 % (5-11) H 05/22/20 14:50 ABG pH 7.37 (7.35-7.45) 05/24/20 06:52 ABG pCO2 33.4 mmHg (35.0-45.0) L 05/24/20 06:52 ABG pO2 136.4 mmHg (> 80.0) H 05/24/20 06:52 Sodium 139 mmol/L (136-145) 05/26/20 04:56 Potassium 3.5 mmol/L (3.5-5.1) 05/26/20 04:56 Chloride 106 mmol/L (98-107) 05/26/20 04:56 Carbon Dioxide 27 mmol/L (23-31) 05/26/20 04:56 BUN 4 mg/dL (8.4-25.7) L 05/26/20 04:56 Creatinine 0.68 mg/dL (0.7-1.3) L 05/26/20 04:56 Glucose 113 mg/dL (80-115) 05/26/20 04:56 Lactic Acid 1.6 mmol/L (0.5-2.2) 05/22/20 19:20 Calcium 9.0 mg/dL (7.8-10.44) 05/26/20 04:56 Total Bilirubin 0.2 mg/dL (0.2-1.2) 05/22/20 14:50 AST 19 U/L (5-34) 05/22/20 14:50 ALT 13 U/L (8-55) 05/22/20 14:50 Alkaline Phosphatase 113 U/L (40-110) H 05/22/20 14:50 Ammonia 35 umol/L (18-72) 05/22/20 16:04 Creatine Kinase 205 U/L (30-200) H 05/22/20 14:50 Troponin I 0.010 ng/mL (< 0.028) 05/22/20 14:50 Serum Total Protein 7.9 g/dL (5.8-8.1) 05/22/20 14:50 Albumin 4.5 g/dL (3.4-4.8) 05/22/20 14:50 Urine Ketones 10 mg/dL (Negative) A 05/22/20 14:50 Urine Blood Negative (Negative) 05/22/20 14:50 Urine Nitrite Negative (Negative) 05/22/20 14:50 Ur Leukocyte Esterase Negative Noel/uL (Negative) 05/22/20 14:50 Urine RBC 0-3 HPF (0-3) 05/22/20 14:50 Urine WBC 4-6 HPF (0-3) A 05/22/20 14:50 Ur Squamous Epith Cells 0-3 HPF (0-3) 05/22/20 14:50 Urine Bacteria None Seen HPF (None Seen) 05/22/20 14:50 - EKG Interpretation EKG: Normal sinus rhythm - Radiology Interpretation MRI - head Status: image reviewed by me, report reviewed by me Additional Comment: MRI brain not reveal acute intracranial pathology. Dilatation of the right temporal horn seen PN A/P (1) Brain abscess Code(s): G06.0 - INTRACRANIAL ABSCESS AND GRANULOMA Status: Acute (2) Metabolic encephalopathy Code(s): G93.41 - METABOLIC ENCEPHALOPATHY Status: Acute (3) Hypertension Code(s): I10 - ESSENTIAL (PRIMARY) HYPERTENSION Status: Chronic - Plan Daily Plan: PT/OT, speech therapy, out of bed/ambulate 65-year-old male with history significant for temporal abscess s/p evacuation presented with altered mental status and fever with a concern about sepsis. He was intubated on arrival to the emergency room to protect his airway. MRI brain was completed on 05/23 and he was successfully extubated on 05/24. The patient speaks Mongolian only. He is back to his baseline and is alert and oriented x4 today Repeat follow-up EEG reviewed which was negative for seizure activity and there is interval improvement since the prior study. MRI of the brain reviewed which showed cystic dilatation of the right temporal horn with associated right temporal vasogenic parietal edema. Neurosurgery is on board. No surgical intervention is needed at this time Continue neurochecks every 2 hours EEG reviewed which was negative for seizure activity. Continue Keppra 500 mg p.o. twice daily because increased risk of seizures secondary to temporal location of the abscess. Observe seizure precautions. Ativan 2 mg IV for seizure greater than 2 minutes. Continue medical management per primary team and neurosurgery. PT/OT/speech. Case management on board regarding discharge planning Patient should be discharged on Keppra 500 mg twice daily with a follow-up in the neurology clinic as outpatient. Plan discussed during the MDR rounds
--- NOTE | 2020-05-26 13:40 | PRG ---
DATE OF SERVICE: 05/26/2020 I saw Mr. Saldana in his hospital room this morning. He has been taken off continuous EEG. I visited with him yesterday with the nurse, who could speak Tuvaluan. I discussed his ongoing care. She reports a bit of language slowness, otherwise seem to be quite good in Tuvaluan conversation. He denied headache and felt back to normal. Neurologically there are no new changes. Mr. Saldana has been afebrile. His vital signs have been stable. His neurological examination has not changed. His cultures have been negative. I do not believe Mr. Saldana has current intracerebral abscess. 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 Surgical intervention might be warranted in the future if it continues to enlarge, but he will need serial followup. He did tell me yesterday he has tried to make appointments at our office and we will try to get in touch with the sister, who would be beneficial in making those appointments happen. We will make arrangements for followup scans in 2 weeks, 6 weeks, [address] examination will be acceptable, we will measure the ventricular size. We will make sure Tuvaluan language specialist is available during those appointments if his family cannot accompany him. Job ID: [id number] MTDD
[2020-05-26 15:48] VITALS: BP 144/73; TEMP 98
--- NOTE | 2020-05-26 17:46 | PDOC.DS.DS ---
Provider - Provider Date of Admission: 05/22/20 17:02 Date of Discharge: 05/26/20 Admitting Provider: Galindo Christie MD Consultations: Neurology Primary Care Physician: Unknown Course - Hospital Course Hospital Course: Mr. Saldana was admitted with altered mental status. Resuscitation Status: 05/22/20 19:20 Resuscitation Status Routine Resuscitation Status: FULL: Full Resuscitation - Labs Lab Results: 05/25/20 04:54 05/26/20 04:56 Abnormal Lab Results - Last 48 hrs 05/25/20 04:54: Potassium 3.0 L, Chloride 108 H, BUN 6 L, Creatinine 0.66 L 05/25/20 04:54: RBC 3.80 L, Hgb 12.5 L, Hct 36.5 L, MCH 32.9 H, RDW 14.8 H, Lymphocytes % 15.9 L, Monocytes # 0.7 H 05/26/20 04:56: BUN 4 L, Creatinine 0.68 L Microbiology - Entire Visit 05/22/20 15:02 Venous blood - Right Hand Blood Culture - Preliminary NO GROWTH AT 48 HOURS 05/22/20 15:08 Venous blood - Left Arm Blood Culture - Preliminary NO GROWTH AT 48 HOURS 05/22/20 17:10 Nasal swab Influenza Types A,B Direct EIA - Final - Physical Exam Vitals: Vital Signs (12 hours) Temp Pulse Resp BP Pulse Ox 05/26/20 15:24 98.0 F 66 17 144/73 H 96 05/26/20 11:16 98.6 F 68 16 150/72 H 97 05/26/20 09:19 84 05/26/20 07:46 97.9 F 84 17 137/79 97 Weight Admit Weight 120 lb Weight 120 lb 13.013 oz Most Recent Monitor Data Heart Rate from ECG 101 NIBP 168/74 NIBP BP-Mean 129 Respiration from ECG 20 SpO2 100 Physical Exam: The patient was seen and examined on the day of discharge. Problem - Problem (1) Metabolic encephalopathy Code(s): G93.41 - METABOLIC ENCEPHALOPATHY Status: Acute (2) Brain abscess Code(s): G06.0 - INTRACRANIAL ABSCESS AND GRANULOMA Status: Acute (3) Hypertension Code(s): I10 - ESSENTIAL (PRIMARY) HYPERTENSION Status: Chronic Plan - Discharge Medications Prescriptions: levETIRAcetam [Keppra] 500 mg PO BID #60 tab Amlodipine [Norvasc] 5 mg PO DAILY #30 tab Home Medications: Medication Instructions Recorded Confirmed Type Amlodipine [Norvasc] 5 mg PO DAILY #30 tab 05/26/20 Rx levETIRAcetam [Keppra] 500 mg PO BID #60 tab 05/26/20 Rx Allergies: No Known Allergies Allergy (Unverified 05/22/20 16:15) - Discharge Instructions Discharge Instructions:: Follow-up with Your Primary Care Physician in 1 week NO DRIVING Until cleared Neurology Activity:: Activity as Tolerated Nourishment:: Regular Diet - Follow up Plan Referrals: Caitlyn Leos MD [Active] - 10 Days Unknown,Unknown [Primary Care Provider] - Disposition: HOME Quality - Care Measures CORE MEASURES:: N/A
--- NOTE | 2020-05-26 18:33 | DIS ---
DATE OF ADMISSION: 05/22/2020 DATE OF DISCHARGE: 05/26/2020 DISCHARGE DISPOSITION: Home. DISCHARGE DIAGNOSES: 1. Seizure. 2. History of previous brain abscess. 3. Hypertension. DISCHARGE MEDICATIONS: Include; 1. Keppra 500 mg p.o. b.i.d. 2. Amlodipine 5 mg p.o. daily. IMAGING DONE DURING THE HOSPITAL STAY: The patient had a CT scan of the brain, showing a prominent decreased attenuation of the white matter, there is an area of previous abscess. The patient also had a CT scan of the cervical spine, showing no evidence of any fracture of the cervical spine. CT scan of the facial bones showing no evidence of fracture. The patient had an echocardiogram, in which the ejection fraction was estimated at 60% to 65%. There was grade 2/3 diastolic dysfunction. The patient had an MRI of the brain, in which there was a cystic dilatation of the right temporal horn, which has lost its normal communication with the right lateral ventricle and atria from the scar, therefore trapped temporal horn. There is no acute hemorrhage or infarction. CODE STATUS: Full code. ALLERGIES: NO KNOWN DRUG ALLERGIES. HOSPITAL COURSE: Mr. Saldana is a 65-year-old gentleman, who was admitted to the hospital with altered mental status. He was brought in by EMS and was found on the ground unconscious and breathing heavily by a friend. He was intubated to protect his airway. He was evaluated by Neurology as well as Neurosurgery and Pulmonology. It was felt that the altered mental status was likely the result of a seizure. There was concern for possible infection initially; however, the abscess appeared to be resolved. The patient however had a scar from the residual infection, which was likely trapping the area of the temporal horn. The neurosurgeons would like to either do a partial temporal lobectomy or endoscopic procedure to help relieve this potential buildup of pressure. This was explained to the patient as well as the patient's daughter. The patient stated that he felt fine and did not feel the need to have any further surgery. This is the reason we contacted his family, so that they could be aware of the general situation. The patient's daughter explained to me that they have tried to take care of him in the past, he basically lost contact with them and would not answer their phone calls and she had actually not seen her father in 9 years until we actually located her. She said she will try to get him to his followup appointments, but does state that he does have a tendency to not follow up on his own. The patient is clinically stable and by the time of discharge, he was alert and oriented x3. He seemed to understand the situation. He was concerned that he does not have medical insurance and was concerned that he would not be able to pay the rent if he were to pursue an expensive medical procedure. Since he was in his right mind and clinically stable, he was discharged home and the followup information was given to him. He also was instructed not to drive. Job ID: [id number]
[2020-05-26] MEDS ORDERED: levETIRAcetam 500 MG TAB PO SCH (21:00)
--- NOTE | 2020-05-28 01:18 | PQF ---
CLINICAL DOCUMENTATION CLARIFICATION FORM: Dear : William Gerber Date / Time: 05/28/2020 0117 Please exercise your independent, professional judgment in responding to the clarification form. Clinical indicators are provided on the bottom of this form for your review Please check appropriate box(es) to clarify if the following diagnosis has been ruled in our ruled out: Severe Sepsis [ X ] Ruled in diagnosis [X ] Continue to treat [ ] Resolved [ ] Ruled out diagnosis [ ] Improving [ ] Cannot rule out diagnosis [ ] Other diagnosis [ ] Unable to determine Physician Signature: Date/Time: For continuity of documentation, please document condition throughout progress notes and discharge summary. Thank You. To be completed by CDI/Coding staff for physician review: Present Clinical Indicators - Signs / Symptoms / Labs Results and Location in Medical Record [X] WBC 22.1, Plt count 343, Neutrophils 76.9, Band 35 Laboratory 05/22 [X] Procalcitonin 0.02; 0.08 Laboratory 05/22 [X] Blood culture: No growth in 5 days Microbiology 05/22 [X] BP 174/102, Pulse 117, Resp 35. Temp 94.8 Vital signs 05/22 [X] Altered mental status H&P p1 05/22 Dr Christie [X] Brain abscess H&P p1 05/22 Dr Christie [X] Due to concern of severe sepsis he was started with Cefepime and Vancomycin H&P p1 05/22 Dr Christie [X] Acute respiratory failure H&P p405/22 Dr Christie [X] Acute encephalopathy H&P p405/22 Dr Christie [X] Lactic Acidosis Consult 05/23 Present Risk Factors Results and Location in Medical Record [X] 65 year-old Male H&P p1 05/22 Dr Christie [X] Brain abscess H&P p1 05/22 Dr Christie [X] Intracerebral infection H&P p405/22 Dr Christie Present Treatments Results and Location in Medical Record [X] IV Maxipime 2 gm OCT 06 [X] IV Ceftriaxone 2 gm OCT 06 [X] IV Metronidazole 500 mg OCT 06 [X] IVF NS 1L OCT 06 [X] IV Vancomycin 1.25 gm OCT 06 [X] Blood culture Microbiology 05/22 [X] Mechanical ventilator Order Dr Christie 05/22 CDS/Silver [employer]er Signature: Majo Burgos Phone #: [phone] Date/Time: 05/28/2020116 This is a permanent part of the Medical Record [facility]
== END 2020-05-26 18:04 | disposition home or self-care (01) | DRG 871 ==
LOC: ERS 13:53 → EDBD 13:53 → CCU 17:02 → 2SE 05-24 18:12
PROVIDERS: ADMIT Student in an Organized Health Care Education/Training Program; ATTEND Internal Medicine
PROC: 5A1945Z Respiratory Ventilation, 24-96 Consecutive Hours (ICD-10-PCS; principal; 2020-05-22)
PROC: 0BH17EZ Insertion of Endotracheal Airway into Trachea, Via Natural or Artificial Opening (ICD-10-PCS; 2020-05-22)
DX: A41.9 Sepsis, unspecified organism (principal); G06.0 Intracranial abscess and granuloma; G93.41 Metabolic encephalopathy; J96.00 Acute respiratory failure, unspecified whether with hypoxia or hypercapnia; G93.6 Cerebral edema; E87.2 Acidosis; R65.20 Severe sepsis without septic shock; I10 Essential (primary) hypertension; Z20.828 Contact with and (suspected) exposure to other viral communicable diseases; R45.1 Restlessness and agitation; Z28.21 Immunization not carried out because of patient refusal; Z79.899 Other long term (current) drug therapy; Z78.1 Physical restraint status
CPT/HCPCS: 36415; 36416; 70450; 70486; 70553; 71045; 71260; 72125; 74177; 80048; 80053; 80202; 80306; 80307; 81003; 81015; 82140; 82550; 82805; 83605; 84145; 84146; 84443; 84484; 85025; 85610; 85730; 87040; 87635; 87804; 93005; 93306; 94002; 94003; 95712; 95816; 95819; 95957; A9579; J0692; J0696; J1630; J1650; J1953; J2060; J2405; J2704; J3010; J3370; J3411; J3480; J3486; J3490; J7050; Q9967; S0028; U0003

== ENCOUNTER 2020-06-08 13:29 | Outpatient (CLI) | payer OTHER, SELFPAY ==
--- NOTE | 2020-06-08 15:27 | CT ---
CT OF THE BRAIN WITHOUT CONTRAST: Date: 06/08/2020 INDICATION: 65-year-old male with history of intracranial bleed and intracranial abscess. COMPARISON: Prior CT of the brain dated 05/22/2020 and MRI of the brain with and without contrast dated 0. FINDINGS: The area of encephalomalacia involving the right occipital lobe within the region of prior intraparen chymal abscess is relatively stable. The dilatation of the temporal horn of the right lateral ventric le is stable. The encephalomalacia involving the anterolateral left frontal lobe is stable. The right parietal craniectomy site is stable. Paranasal sinuses and mastoid air cells are clear. There is gordon e mild residual right to left midline shift of 4.6 mm. No new intracranial hemorrhage is evident. IMPRESSION: Stable examination of the brain when compared to a recent CT dated 05/22/2020. POS: BH
== END 2020-06-08 13:30 | disposition home or self-care (01) ==
LOC: TBSIIMAG 13:29
PROVIDERS: ATTEND Neurological Surgery
DX: I61.9 Nontraumatic intracerebral hemorrhage, unspecified (principal)
CPT/HCPCS: 70450